=== PATIENT | female | born 2000 | race African-American/Black ===

== ENCOUNTER 2021-12-20 14:09 | Emergency (ER) | payer SELFPAY ==
--- OUTSIDE RECORDS SUMMARY | 2021-12-20 14:13 | XMS REPORT | Continuity of Care Document ---
:2000 Author Organization [facility] t Address [address] [place] [address] [address]. [address] [place] [address] Care Team Providers Name Role Phone PCP, PATIENT DOES NOT HAVE A Primary Care Physician Unavaila angi Wright Attending Clinician Unavailable Johnson CRUZ Attending Clinician Unavailable Kyle Admitting Clinician Unavailable Payers Payer Name Policy Type Policy Number Effective Date Expiration Date S ource Problems Condition Condition Condition Status Onset Resolution Last Treating Co mments Source Name Details Category Date Date Treatment Clinician Date Eczema Eczema Problem Active [place] 9-15 da 00:00: [facility] Allergies, Adverse Reactions, Alerts Allergy Allergy Status Severity Reaction(s) Onset Inactive Treating Comm ents Source Name Type Date Date Clinician NO KNOWN Drug Active [facility] ALLERGIE Class ity [facility] Social History Smoking Status Start Date Stop Date Source Never Smoker [facility] Medications Ordered Filled Start Stop Current Ordering Indication Dosage Frequency Signature Comments Components Source Medication Medication Date Date Medication? Clinician (SIG) Name Name hydrocortis hydrocortis No hydrocorti [place] one 1 % one 1 % sone 1 % da topical topical topical [facility] cream APPLY cream APPLY cream al THIN LAYER THIN LAYER APPLY THIN Health TOPICALLY TOPICALLY LAYER Outr eac TO THE TO THE TOPICALLY h AFFECTED AFFECTED TO THE Progr am AREA TWICE AREA TWICE AFFECTED DAILY DAILY AREA TWICE DAILY mirtazapine mirtazapine No mirtazapin [place] 30 mg 30 mg e 30 mg da tablet TAKE tablet TAKE tablet [facility] 1 TABLET BY 1 TABLET BY TAKE 1 al MOUTH EVERY MOUTH EVERY TABLET BY Health DAY AT DAY AT MOUTH Outreac BEDTIME BEDTIME EVERY DAY h AT BEDTIME Program triamcinolo triamcinolo No triamcinol [place] ne ne one da acetonide acetonide acetonide [facility] 0.1 % 0.1 % 0.1 % al topical topical topical Health ointment ointment ointment Out reac APPLY A APPLY A APPLY A h THIN LAYER THIN LAYER THIN LAYER Program TO THE TO THE TO THE AFFECTED AFFECTED AFFECTED AREA(S) BY AREA(S) BY AREA(S) BY TOPICAL TOPICAL TOPICAL ROUTE 2 ROUTE 2 ROUTE 2 TIMES PER TIMES PER TIMES PER DAY use DAY use DAY use only if only if only if hydrocortis hydrocortis hydrocorti one not one not sone not effective effective effective Abilify 5 Abilify 5 No 1 Q1D Abilify 5 [place] mg tablet mg tablet mg tablet da Take 1 Take 1 Take 1 [facility] tablet tablet tablet al every day every day every day Health by oral by oral by oral Outrea c route in route in route in h the morning the morning the P rogram for 30 for 30 morning days. days. for 30 days. fluconazole fluconazole No fluconazol [place] 150 mg 150 mg e 150 mg da tablet TAKE tablet TAKE tablet [facility] 1 TABLET BY 1 TABLET BY TAKE 1 al MOUTH EVERY MOUTH EVERY TABLET BY Health OTHER DAY OTHER DAY MOUTH Outr eac FOR 4 DAYS FOR 4 DAYS EVERY h OTHER DAY Program FOR 4 DAYS hydrocortis hydrocortis No hydrocorti [place] one 1 % one 1 % sone 1 % da topical topical topical [facility] cream APPLY cream APPLY cream al THIN LAYER THIN LAYER APPLY THIN Health TOPICALLY TOPICALLY LAYER Outr eac TO THE TO THE TOPICALLY h AFFECTED AFFECTED TO THE Progr am AREA TWICE AREA TWICE AFFECTED DAILY DAILY AREA TWICE DAILY mirtazapine mirtazapine No mirtazapin [place] 30 mg 30 mg e 30 mg da tablet TAKE tablet TAKE tablet [facility] 1 TABLET BY 1 TABLET BY TAKE 1 al MOUTH EVERY MOUTH EVERY TABLET BY Health DAY AT DAY AT MOUTH Outreac BEDTIME BEDTIME EVERY DAY h AT BEDTIME Program triamcinolo triamcinolo No triamcinol [place] ne one da acetonide acetonide acetonide [facility] 0.1 % 0.1 % 0.1 % al topical topical topical Health ointment ointment ointment Out reac APPLY A APPLY A APPLY A h THIN LAYER THIN LAYER THIN LAYER Program TO THE TO THE TO THE AFFECTED AFFECTED AFFECTED AREA(S) BY AREA(S) BY AREA(S) BY TOPICAL TOPICAL TOPICAL ROUTE 2 ROUTE 2 ROUTE 2 TIMES PER TIMES PER TIMES PER DAY use DAY use DAY use only if only if only if hydrocortis hydrocortis hydrocorti one not one not sone not effective effective effective hydrocortis hydrocortis No hydrocorti [place] one 1 % one 1 % sone 1 % da topical topical topical [facility] cream APPLY cream APPLY cream al A THIN A THIN APPLY A Health LAYER TO LAYER TO THIN LAYER O utreac THE THE TO THE h AFFECTED AFFECTED AFFECTED Pro gram AREA(S) BY AREA(S) BY AREA(S) BY TOPICAL TOPICAL TOPICAL ROUTE 2 ROUTE 2 ROUTE 2 TIMES PER TIMES PER TIMES PER DAY DAY DAY triamcinolo triamcinolo No triamcinol [place] ne one da acetonide acetonide acetonide [facility] 0.1 % 0.1 % 0.1 % al topical topical topical Health ointment ointment ointment Out reac APPLY A APPLY A APPLY A h THIN LAYER THIN LAYER THIN LAYER Program TO THE TO THE TO THE AFFECTED AFFECTED AFFECTED AREA(S) BY AREA(S) BY AREA(S) BY TOPICAL TOPICAL TOPICAL ROUTE 2 ROUTE 2 ROUTE 2 TIMES PER TIMES PER TIMES PER DAY use DAY use DAY use only if only if only if hydrocortis hydrocortis hydrocorti one not one not sone not effective effective effective hydrocortis hydrocortis No hydrocorti [place] one 1 % one 1 % sone 1 % da topical topical topical [facility] cream APPLY cream APPLY cream al THIN LAYER THIN LAYER APPLY THIN Health TOPICALLY TOPICALLY LAYER Outr eac TO THE TO THE TOPICALLY h AFFECTED AFFECTED TO THE Progr am AREA TWICE AREA TWICE AFFECTED DAILY DAILY AREA TWICE DAILY mirtazapine mirtazapine No 1 Q1D mirtazapin [place] 30 mg 30 mg e 30 mg da tablet Take tablet Take tablet [facility] 1 tablet 1 tablet Take 1 al every day every day tablet Hea lth by oral by oral every day Outr eac route at route at by oral h bedtime for bedtime for route at Program 30 days. 30 days. bedtime for 30 days. triamcinolo triamcinolo No triamcinol [place] ne ne one da acetonide acetonide acetonide [facility] 0.1 % 0.1 % 0.1 % al topical topical topical Health ointment ointment ointment Out reac APPLY A APPLY A APPLY A h THIN LAYER THIN LAYER THIN LAYER Program TO THE TO THE TO THE AFFECTED AFFECTED AFFECTED AREA(S) BY AREA(S) BY AREA(S) BY TOPICAL TOPICAL TOPICAL ROUTE 2 ROUTE 2 ROUTE 2 TIMES PER TIMES PER TIMES PER DAY use DAY use DAY use only if only if only if hydrocortis hydrocortis hydrocorti one not one not sone not effective effective effective hydrocortis hydrocortis No hydrocorti [place] one 1 % one 1 % sone 1 % da topical topical topical [facility] cream APPLY cream APPLY cream al THIN LAYER THIN LAYER APPLY THIN Health TOPICALLY TOPICALLY LAYER Outr eac TO THE TO THE TOPICALLY h AFFECTED AFFECTED TO THE Progr am AREA TWICE AREA TWICE AFFECTED DAILY DAILY AREA TWICE DAILY mirtazapine mirtazapine No mirtazapin [place] 30 mg 30 mg e 30 mg da tablet TAKE tablet TAKE tablet [facility] 1 TABLET BY 1 TABLET BY TAKE 1 al MOUTH EVERY MOUTH EVERY TABLET BY Health DAY AT DAY AT MOUTH Outreac BEDTIME BEDTIME EVERY DAY h AT BEDTIME Program triamcinolo triamcinolo No triamcinol [place] ne one da acetonide acetonide acetonide [facility] 0.1 % 0.1 % 0.1 % al topical topical topical Health ointment ointment ointment Out reac APPLY A APPLY A APPLY A h THIN LAYER THIN LAYER THIN LAYER Program TO THE TO THE TO THE AFFECTED AFFECTED AFFECTED AREA(S) BY AREA(S) BY AREA(S) BY TOPICAL TOPICAL TOPICAL ROUTE 2 ROUTE 2 ROUTE 2 TIMES PER TIMES PER TIMES PER DAY use DAY use DAY use only if only if only if hydrocortis hydrocortis hydrocorti one not one not sone not effective effective effective Diflucan Diflucan No 1 Q2D Diflucan [place] 150 mg 150 mg 150 mg da tablet Take tablet Take tablet [facility] 1 tablet 1 tablet Take 1 al every other every other tablet Health day by oral day by oral every Outreac route for 4 route for 4 other day h days. days. by oral Program route for 4 days. Vital Signs Vital Name Observation Time Observation Value Comments Source BP Systolic 2021-11-24 00:00:00 102 mm[Hg] Alexandra khalil [facility] Body Weight 2021-11-24 00:00:00 [facility] BP Diastolic 2021-11-24 00:00:00 74 mm[facility]Hg[facility] Height 2021-11-24 00:00:00 65 [in_i[facility] BMI (Body Mass 2021-11-24 00:00:00 19.5 kg/m2 [place] assistant education director [facility] Index) [facility] Outreach Program BP Diastolic 2021-11-18 00:00:00 70 mm[facility]Hg[facility] Height 2021-11-18 00:00:00 65 [facility] BMI (Body Mass 2021-11-18 00:00:00 20 kg/m2 [place] assistant education director [facility] Index) [facility] Out[facility] BP Systolic 2021-11-18 00:00:00 101 mm[facility]Hg] [facility] Body Weight 2021-11-18 00:00:00 1920 [oz_av[facility] BP Diastolic 2021-10-23 00:00:00 79 mm[facility]Hg[facility] Height 2021-10-23 00:00:00 65 [in_i] [facility] BMI (Body Mass 2021-10-23 00:00:00 19.1 kg/m2 [place] assistant education director [facility] Index) [facility] Out[facility] BP Systolic 2021-10-23 00:00:00 114 mm[facility]Hg[facility] Body Weight 2021-10-23 00:00:00 1840 [facility]oz_av[facility] Procedures Procedure Date / Time Performed Performing Clinician Sourc e US, pelvis, complete 2021-11-24 00:00:00 Odette guerrero [facility] US, thyroid 2021-11-18 00:00:00 Vince [facility] Plan of Care Planned Activity Planned Date Details Comments Source Diagnostic Test 2021-11-24 HCG, intact + beta [place] assistant education director Pending 00:00:00 subunit, quant, [facility] serum or plasma Outreach Pro gram [code = HCG, intact + beta subunit, quant, serum or plasma] Diagnostic Test 2021-11-24 prolactin, serum [place] Pending 00:00:00 [code = prolactin, [facility] serum] Outreach Progra m Diagnostic Test 2021-11-24 TSH + free T4, serum Angel wale Pending 00:00:00 [code = TSH + free [facility] T4, serum] Outreach Progra m Diagnostic Test 2021-11-24 HbA1c (hemoglobin [place] Pending 00:00:00 A1c), blood [code = [facility] HbA1c (hemoglobin Outreach P rogram A1c), blood] Diagnostic Test 2021-11-24 dhea-sulfate, serum [place] Pending 00:00:00 [code = [facility] dhea-sulfate, serum] Outreac h Program Diagnostic Test 2021-11-24 insulin, serum [code Angel wale Pending 00:00:00 = insulin, serum] [facility] Progra m Diagnostic Test 2021-11-24 testosterone, free + Angel wale Pending 00:00:00 total, serum [code = [facility] testosterone, free + Outreac h Program total, serum] Diagnostic Test 2021-11-24 HIV 1 + 2, [facility] Pending 00:00:00 meaningful use set [facility] [code = HIV 1 + 2, Outreach Program meaningful use set] Future Appointment 2021-12-31 Carlos Holbrook, [address] [place] 00:00:00 [place] [address] Outreach Program Encounters Start End Encounter Admission Attending Care Care Encounter Source Date/Time Date/Time Type Type Clinicians Facility Department ID 2021-12-16 2021-12-16 Outpatient [facility] 1205 [place] 00:00:00 00:00:00 [id number] [facility] 2021-12-10 2021-12-10 Outpatient Ngen_o [facility] 1205 [id number] [place] 00:00:00 00:00:00 [id number] [facility] 2021-12-10 2021-12-10 Carlos Nevarez [facility] [place] - [id number] [place] 00:00:00 00:00:00 MD Yusef: Vince khalil 1700 [facility] [address] h , Ph. 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 2021-11-18 2021-11-18 Outpatient Nguyen_Yaneo MEHOP DCHOP 1205 [place] 00:00:00 00:00:00 [id number] [facility] 2021-11-18 2021-11-18 Juan R [facility] [place] - [id number] M atagor 00:00:00 00:00:00 Vince Suárez RNFA-SENIOR QUALITY CONTROL INSPECTOR-C: Yarsani Epi scop 1700 [facility] - DCHOP [facility] [address] Errol , Ph. 2021-11-12 2021-11-12 Outpatient Nguyen_Tho MEHOP DCHOP 1205 [id number] [place] 00:00:00 00:00:00 [id number] da [facility] 2021-11-12 2021-11-12 [facility] [place] [facility] [id number] [place] 00:00:00 00:00:00 MD Yusef: Vince khalil 1700 Y[facility]ani [facility] [address] h , Ph. Program ([phone]) 2021-10-23 2021-10-23 [facility] 120 [id number] [place] 00:00:00 00:00:00 [id number] da [facility] 2021-10-23 2021-10-23 [facility] [id number] M atagor 00:00:00 00:00:00 Vince Suárez da RNFA-SENIOR QUALITY CONTROL INSPECTOR-C: Yarsani Epi scop 1700 [facility] [address], [facility] [address] [facility] , Ph. 2021-10-12 2021-10-12 Outpatient [facility] 1205 [id number] [place] 00:00:00 00:00:00 [id number] da [facility] 2021-10-05 2021-10-05 Outpatient [facility] 1205 [id number] [place] 00:00:00 00:00:00 [id number] da [facility] 2021-07-12 2021-07-13 Emergency X Johnson CRUZ [facility] ERT [id number] Univers 21:40:00 01:50:00 [facility] Results Test Description Test Time Test Comments Results Result Comments Source Free T4 and TSH panel - Serum or Plasma 2021-11-25 00:00:00 Test Item Value Reference Range Interpretation Comme nts Thyrotropin [Units/volume] in Serum or Plasma by 0.544 uIU/mL 0.450 -4.500 Detection limit <= 0.005 mIU/L (test code = 26898-2) Thyroxine (T4) free [Mass/volume] in Serum or Plasma 0.97 NG/dL 0 .82-1.77 (test code = 3024-7) [facility] ProgramTestosterone free and total panel [Mass/volume] - Serum or [id number] 00:00:00 Test Item Value Reference Range Interpretation Comments Testosterone [Mass/volume] in Serum 26 NG/dL 13-71 or Plasma (test code = 2986-8) Testosterone Free [Mass/volume] in 1.6 pg/mL 0.0-4.2 Serum or Plasma (test code = 2991-8) [facility] Center[facility] A1c/Hemoglobin.total in [id number] 00:00:00 Test Item Value Reference Range Interpretation Comments Hemoglobin A1c/Hemoglobin.total in 5.3 % 4.8-5.6 Blood (test code = 4548-4) [facility] CenterDehydroepiandrosterone sulfate (DHEA- S) [Mass/volume] in Serum or [id number] 00:00:00 Test Item Value Reference Range Interpretation Comments Dehydroepiandrosterone sulfate 205.0 ug/dL 110.0-431.7 (DHEA-S) [Mass/volume] in Serum or Plasma (test code = 2191-5) [facility] CenterChoriogonadotropin.intact+Beta subunit [Units/volume] in Serum or [id number] 00:00:00 Test Item Value Reference Range Interpretation Comments Choriogonadotropin.intact+Beta subunit <1 [Units/volume] in Serum or Plasma (test code = 69601-7) [facility] CenterProlactin [Mass/volume] in Serum or [id number] 00:00:00 Test Item Value Reference Range Interpretation Comments Prolactin [Mass/volume] in Serum 14.7 NG/mL 4.8-23.3 or Plasma (test code = 2842-3) [facility] CenterHIV 1 and 2 tests - Meaningful Use [id number] 00:00:00 Test Item Value Reference Range Interpretation Comments HIV 1+2 Ab+HIV1 p24 Ag non reactive non reactive [Presence] in Serum or Plasma by Immunoassay (test code = 26900-5) [facility] CenterInsulin [Units/volume] in Serum or [id number] 00:00:00 Test Item Value Reference Range Interpretation Comments Insulin [Units/volume] in Serum or 2.3 uIU/mL 2.6-24.9 L Plasma (test code = 52602-1) [facility] Centerpregnancy test, [id number] 14:34:48 Test Item Value Reference Range Interpretation Comments HCG (test code = HCG) negative [facility] Programpregnancy test, [id number] 14:34:48 Test Item Value Reference Range Interpretation Comments HCG (test code = HCG) negative [facility] Programpregnancy test, [id number] 14:34:48 Test Item Value Reference Range Interpretation Comments HCG (test code = HCG) negative [facility] ProgramUrinalysis macro (dipstick) panel - [id number] 14:34:43 Test Item Value Reference Range Interpretation Comments Leukocytes (test code = Leukocytes) - Nitrite (test code = Nitrite) - Urobilinogen (test code = - Urobilinogen) Protein (test code = Protein) - pH (test code = pH) 8.0 Blood (test code = Blood) - Specific [place] (test code = Specific 1.015 [place]) Ketone (test code = Ketone) - Bilirubin (test code = Bilirubin) - Glucose (test code = Glucose) - Appearance (test code = Appearance) clear Color (test code = Color) yellow [facility] CenterUrinalysis macro (dipstick) panel - [id number] 14:34:43 Test Item Value Reference Range Interpretation Comments Leukocytes (test code = Leukocytes) - Nitrite (test code = Nitrite) - Urobilinogen (test code = - Urobilinogen) Protein (test code = Protein) - pH (test code = pH) 8.0 Blood (test code = Blood) - Specific [place] (test code = Specific 1.015 [place]) Ketone (test code = Ketone) - Bilirubin (test code = Bilirubin) - Glucose (test code = Glucose) - Appearance (test code = Appearance) clear Color (test code = Color) yellow [facility] CenterUrinalysis macro (dipstick) panel - [id number] 14:34:43 Test Item Value Reference Range Interpretation Comments Leukocytes (test code = Leukocytes) - Nitrite (test code = Nitrite) - Urobilinogen (test code = - Urobilinogen) Protein (test code = Protein) - pH (test code = pH) 8.0 Blood (test code = Blood) - Specific [place] (test code = Specific 1.015 [place]) Ketone (test code = Ketone) - Bilirubin (test code = Bilirubin) - Glucose (test code = Glucose) - Appearance (test code = Appearance) clear Color (test code = Color) yellow [facility] W Auto Differential panel - Blood 2021-10-30 00:00:00 Test Item Value Reference Range Interpretation Comments Leukocytes [#/volume] in Blood 4.3 x10e3/uL 3.4-10.8 by Automated count (test code = 6690-2) Erythrocytes [#/volume] in 4.86 x10e6/uL 3.77-5.28 Blood by Automated count (test code = 789-8) Hemoglobin [Mass/volume] in 13.4 g/dL 11.1-15.9 Blood (test code = 718-7) Hematocrit [Volume Fraction] of 42.5 % 34.0-46.6 Blood by Automated count (test code = 4544-3) Erythrocyte mean corpuscular 87 fL 79-97 volume [Entitic volume] by Automated count (test code = 787-2) Erythrocyte mean corpuscular 27.6 pg 26.6-33.0 hemoglobin [Entitic mass] by Automated count (test code = 785-6) Erythrocyte mean corpuscular 31.5 g/dL 31.5-35.7 hemoglobin concentration [Mass/volume] by Automated count (test code = 786-4) Erythrocyte distribution width 13.5 % 11.7-15.4 [Ratio] by Automated count (test code = 788-0) Platelets [#/volume] in Blood 211 x10e3/uL 150-450 by Automated count (test code = 777-3) Neutrophils/100 leukocytes in 44 % not estab. Blood by Automated count (test code = 770-8) Lymphocytes/100 leukocytes in 39 % not estab. Blood by Automated count (test code = 736-9) Monocytes/100 leukocytes in 8 % not estab. Blood by Automated count (test code = 5905-5) Eosinophils/100 leukocytes in 8 % not estab. Blood by Automated count (test code = 713-8) Basophils/100 leukocytes in 1 % not estab. Blood by Automated count (test code = 706-2) immature cells (test code = suture winder hand immature cells) Neutrophils [#/volume] in Blood 1.9 x10e3/uL 1.4-7.0 by Automated count (test code = 751-8) Lymphocytes [#/volume] in Blood 1.7 x10e3/uL 0.7-3.1 by Automated count (test code = 731-0) Monocytes [#/volume] in Blood 0.4 x10e3/uL 0.1-0.9 by Automated count (test code = 742-7) Eosinophils [#/volume] in Blood 0.3 x10e3/uL 0.0-0.4 by Automated count (test code = 711-2) Basophils [#/volume] in Blood 0.0 x10e3/uL 0.0-0.2 by Automated count (test code = 704-7) Immature granulocytes/100 0 % not estab. leukocytes in Blood by Automated count (test code = 43295-8) Immature granulocytes 0.0 x10e3/uL 0.0-0.1 [#/volume] in Blood by Automated count (test code = 81172-2) Nucleated erythrocytes/100 suture winder hand leukocytes [Ratio] in Blood by Automated count (test code = 84853-1) Morphology [Interpretation] in suture winder hand Blood Narrative (test code = 52150-7) [facility] Outreach ProgramComprehensive metabolic 2000 panel - Serum or [id number] 00:00:00 Test Item Value Reference Range Interpretation Comments Glucose [Mass/volume] in 70 mg/dL 65-99 Serum or Plasma (test code = 2345-7) Urea nitrogen [Mass/volume] 12 mg/dL 6-20 in Serum or Plasma (test code = 3094-0) Creatinine [Mass/volume] in 0.75 mg/dL 0.57-1.00 Serum or Plasma (test code = 2160-0) eGFR (test code = eGFR) 115 mL/min/1.73 >59 Urea nitrogen/Creatinine 16 9-23 [Mass Ratio] in Serum or Plasma (test code = 3097-3) Sodium [Moles/volume] in 138 mmol/L 134-144 Serum or Plasma (test code = 2951-2) Potassium [Moles/volume] in 4.2 mmol/L 3.5-5.2 Serum or Plasma (test code = 2823-3) Chloride [Moles/volume] in 101 mmol/L 96-106 Serum or Plasma (test code = 2074-0) Carbon dioxide, total 23 mmol/L 20-29 [Moles/volume] in Serum or Plasma (test code = 2027-) Calcium [Mass/volume] in 9.5 mg/dL 8.7-10.2 Serum or Plasma (test code = 04199-2) Protein [Mass/volume] in 7.4 g/dL 6.0-8.5 Serum or Plasma (test code = 2885-2) Albumin [Mass/volume] in 4.7 g/dL 3.9-5.0 Serum or Plasma (test code = 175-7) Globulin [Mass/volume] in 2.7 g/dL 1.5-4.5 Serum by calculation (test code = 17274-6) Albumin/Globulin [Mass Ratio] 1.7 1.2-2.2 in Serum or Plasma (test code = 1759-0) Bilirubin.total [Mass/volume] 1.5 mg/dL 0.0-1.2 H in Serum or Plasma (test code = 1974-) Alkaline phosphatase 51 IU/L 44-121 [Enzymatic activity/volume] in Serum or Plasma (test code = 6768-6) Aspartate aminotransferase 11 IU/L 0-40 [Enzymatic activity/volume] in Serum or Plasma (test code = 1920-8) Alanine aminotransferase 8 IU/L 0-32 [Enzymatic activity/volume] in Serum or Plasma (test code = 1742-6) [facility] ProgramLipid 1996 panel - Serum or Plasma 2021-10-30 00:00:00 Test Item Value Reference Range Interpretation Comments Cholesterol [Mass/volume] in Serum 183 mg/dL 100-199 or Plasma (test code = 2092-3) Triglyceride [Mass/volume] in Serum 72 mg/dL 0-149 or Plasma (test code = 2571-8) Cholesterol in HDL [Mass/volume] in 72 mg/dL >39 Serum or Plasma (test code = 2084-9) Cholesterol in VLDL [Mass/volume] 13 mg/dL 5-40 in Serum or Plasma by calculation (test code = 77866-4) Cholesterol in LDL [Mass/volume] in 98 mg/dL 0-99 Serum or Plasma by calculation (test code = 72660-8) Laboratory comment [Text] in Report suture winder hand Narrative (test code = 35972-1) [facility] CenterHemoglobin A1c/Hemoglobin.total in [id number] 00:00:00 Test Item Value Reference Range Interpretation Comments Hemoglobin A1c/Hemoglobin.total in 5.3 % 4.8-5.6 Blood (test code = 4548-4) [facility] Center25-Hydroxyvitamin D3+25- Hydroxyvitamin D2 [Mass/volume] in Serum or [id number] 00:00:00 Test Item Value Reference Range Interpretation Comments 25-Hydroxyvitamin 35.4 NG/mL 30.0-100.0 D3+25-Hydroxyvitamin D2 [Mass/volume] in Serum or Plasma (test code = 28407-0) [facility] [Units/volume] in Serum or Plasma by Detection limit <= 0.005 mIU/[id number] 00:00:00 Test Item Value Reference Range Interpretation Comments Thyrotropin [Units/volume] in 0.446 uIU/mL 0.450-4.500 L Serum or Plasma by Detection limit <= 0.005 mIU/L (test code = 45885-6) Thyroxine (T4) free 1.06 NG/dL 0.82-1.77 [Mass/volume] in Serum or Plasma (test code = 3024-7) [facility] panel, [id number] 00:00:00 Test Item Value Reference Range Interpretation Comments Interpretation and review of laboratory note results (test code = 73172-4) Report (test code = 00669-1) . [facility] CenterCBC W Auto Differential panel - Blood 2021-10-30 00:00:00 Test Item Value Reference Range Interpretation Comments Leukocytes [#/volume] in Blood 4.3 x10e3/uL 3.4-10.8 by Automated count (test code = 6690-2) Erythrocytes [#/volume] in 4.86 x10e6/uL 3.77-5.28 Blood by Automated count (test code = 789-8) Hemoglobin [Mass/volume] in 13.4 g/dL 11.1-15.9 Blood (test code = 718-7) Hematocrit [Volume Fraction] of 42.5 % 34.0-46.6 Blood by Automated count (test code = 4544-3) Erythrocyte mean corpuscular 87 fL 79-97 volume [Entitic volume] by Automated count (test code = 787-2) Erythrocyte mean corpuscular 27.6 pg 26.6-33.0 hemoglobin [Entitic mass] by Automated count (test code = 785-6) Erythrocyte mean corpuscular 31.5 g/dL 31.5-35.7 hemoglobin concentration [Mass/volume] by Automated count (test code = 786-4) Erythrocyte distribution width 13.5 % 11.7-15.4 [Ratio] by Automated count (test code = 788-0) Platelets [#/volume] in Blood 211 x10e3/uL 150-450 by Automated count (test code = 777-3) Neutrophils/100 leukocytes in 44 % not estab. Blood by Automated count (test code = 770-8) Lymphocytes/100 leukocytes in 39 % not estab. Blood by Automated count (test code = 736-9) Monocytes/100 leukocytes in 8 % not estab. Blood by Automated count (test code = 5905-5) Eosinophils/100 leukocytes in 8 % not estab. Blood by Automated count (test code = 713-8) Basophils/100 leukocytes in 1 % not estab. Blood by Automated count (test code = 706-2) immature cells (test code = suture winder hand immature cells) Neutrophils [#/volume] in Blood 1.9 x10e3/uL 1.4-7.0 by Automated count (test code = 751-8) Lymphocytes [#/volume] in Blood 1.7 x10e3/uL 0.7-3.1 by Automated count (test code = 731-0) Monocytes [#/volume] in Blood 0.4 x10e3/uL 0.1-0.9 by Automated count (test code = 742-7) Eosinophils [#/volume] in Blood 0.3 x10e3/uL 0.0-0.4 by Automated count (test code = 711-2) Basophils [#/volume] in Blood 0.0 x10e3/uL 0.0-0.2 by Automated count (test code = 704-7) Immature granulocytes/100 0 % not estab. leukocytes in Blood by Automated count (test code = 32934-1) Immature granulocytes 0.0 x10e3/uL 0.0-0.1 [#/volume] in Blood by Automated count (test code = 97745-7) Nucleated erythrocytes/100 suture winder hand leukocytes [Ratio] in Blood by Automated count (test code = 90608-0) Morphology [Interpretation] in suture winder hand Blood Narrative (test code = 93401-0) [facility] CenterComprehensive metabolic 2000 panel - Serum or [id number] 00:00:00 Test Item Value Reference Range Interpretation Comments Glucose [Mass/volume] in 70 mg/dL 65-99 Serum or Plasma (test code = 2345-7) Urea nitrogen [Mass/volume] 12 mg/dL 6-20 in Serum or Plasma (test code = 3094-0) Creatinine [Mass/volume] in 0.75 mg/dL 0.57-1.00 Serum or Plasma (test code = 2160-0) eGFR (test code = eGFR) 115 mL/min/1.73 >59 Urea nitrogen/Creatinine 16 9-23 [Mass Ratio] in Serum or Plasma (test code = 3097-3) Sodium [Moles/volume] in 138 mmol/L 134-144 Serum or Plasma (test code = 2951-2) Potassium [Moles/volume] in 4.2 mmol/L 3.5-5.2 Serum or Plasma (test code = 2823-3) Chloride [Moles/volume] in 101 mmol/L 96-106 Serum or Plasma (test code = 2075-0) Carbon dioxide, total 23 mmol/L 20-29 [Moles/volume] in Serum or Plasma (test code = 8-9) Calcium [Mass/volume] in 9.5 mg/dL 8.7-10.2 Serum or Plasma (test code = 53747-6) Protein [Mass/volume] in 7.4 g/dL 6.0-8.5 Serum or Plasma (test code = 2885-2) Albumin [Mass/volume] in 4.7 g/dL 3.9-5.0 Serum or Plasma (test code = 1751-7) Globulin [Mass/volume] in 2.7 g/dL 1.5-4.5 Serum by calculation (test code = 24188-2) Albumin/Globulin [Mass Ratio] 1.7 1.2-2.2 in Serum or Plasma (test code = 1759-0) Bilirubin.total [Mass/volume] 1.5 mg/dL 0.0-1.2 H in Serum or Plasma (test code = 1975-2) Alkaline phosphatase 51 IU/L 44-121 [Enzymatic activity/volume] in Serum or Plasma (test code = 6768-6) Aspartate aminotransferase 11 IU/L 0-40 [Enzymatic activity/volume] in Serum or Plasma (test code = 1920-8) Alanine aminotransferase 8 IU/L 0-32 [Enzymatic activity/volume] in Serum or Plasma (test code = 1742-6) [facility] CenterLip[facility] 1996 panel - Serum or Plasma 2021-10-30 00:00:00 Test Item Value Reference Range Interpretation Comments Cholesterol [Mass/volume] in Serum 183 mg/dL 100-199 or Plasma (test code = 2093-3) Triglyceride [Mass/volume] in Serum 72 mg/dL 0-149 or Plasma (test code = 2571-8) Cholesterol in HDL [Mass/volume] in 72 mg/dL >39 Serum or Plasma (test code = 2085-9) Cholesterol in VLDL [Mass/volume] 13 mg/dL 5-40 in Serum or Plasma by calculation (test code = 30772-1) Cholesterol in LDL [Mass/volume] in 98 mg/dL 0-99 Serum or Plasma by calculation (test code = 82608-1) Laboratory comment [Text] in Report suture winder hand Narrative (test code = 85919-8) [facility] CenterHemoglobin A1c/Hemoglobin.total in [id number] 00:00:00 Test Item Value Reference Range Interpretation Comments Hemoglobin A1c/Hemoglobin.total in 5.3 % 4.8-5.6 Blood (test code = 4548-4) [facility]25-Hydroxyvitamin D3+25- Hydroxyvitamin D2 [Mass/volume] in Serum or [id number] 00:00:00 Test Item Value Reference Range Interpretation Comments 25-Hydroxyvitamin 35.4 NG/mL 30.0-100.0 D3+25-Hydroxyvitamin D2 [Mass/volume] in Serum or Plasma (test code = 22252-1) [facility] CenterThyrotropin [Units/volume] in Serum or Plasma by Detection limit <= 0.005 mIU/[id number] 00:00:00 Test Item Value Reference Range Interpretation Comments Thyrotropin [Units/volume] in 0.446 uIU/mL 0.450-4.500 L Serum or Plasma by Detection limit <= 0.005 mIU/L (test code = 64952-5) Thyroxine (T4) free 1.06 NG/dL 0.82-1.77 [Mass/volume] in Serum or Plasma (test code = 3024-7) [facility] Centercardi[facility] assessment panel, [id number] 00:00:00 Test Item Value Reference Range Interpretation Comments Interpretation and review of laboratory note results (test code = 14033-8) Report (test code = 10988-4) . [facility] W Auto Differential panel - Blood 2021-10-30 00:00:00 Test Item Value Reference Range Interpretation Comments Leukocytes [#/volume] in Blood 4.3 x10e3/uL 3.4-10.8 by Automated count (test code = 6690-2) Erythrocytes [#/volume] in 4.86 x10e6/uL 3.77-5.28 Blood by Automated count (test code = 789-8) Hemoglobin [Mass/volume] in 13.4 g/dL 11.1-15.9 Blood (test code = 718-7) Hematocrit [Volume Fraction] of 42.5 % 34.0-46.6 Blood by Automated count (test code = 4544-3) Erythrocyte mean corpuscular 87 fL 79-97 volume [Entitic volume] by Automated count (test code = 787-2) Erythrocyte mean corpuscular 27.6 pg 26.6-33.0 hemoglobin [Entitic mass] by Automated count (test code = 785-6) Erythrocyte mean corpuscular 31.5 g/dL 31.5-35.7 hemoglobin concentration [Mass/volume] by Automated count (test code = 786-4) Erythrocyte distribution width 13.5 % 11.7-15.4 [Ratio] by Automated count (test code = 788-0) Platelets [#/volume] in Blood 211 x10e3/uL 150-450 by Automated count (test code = 777-3) Neutrophils/100 leukocytes in 44 % not estab. Blood by Automated count (test code = 770-8) Lymphocytes/100 leukocytes in 39 % not estab. Blood by Automated count (test code = 736-9) Monocytes/100 leukocytes in 8 % not estab. Blood by Automated count (test code = 5905-5) Eosinophils/100 leukocytes in 8 % not estab. Blood by Automated count (test code = 713-8) Basophils/100 leukocytes in 1 % not estab. Blood by Automated count (test code = 706-2) immature cells (test code = suture winder hand immature cells) Neutrophils [#/volume] in Blood 1.9 x10e3/uL 1.4-7.0 by Automated count (test code = 751-8) Lymphocytes [#/volume] in Blood 1.7 x10e3/uL 0.7-3.1 by Automated count (test code = 731-0) Monocytes [#/volume] in Blood 0.4 x10e3/uL 0.1-0.9 by Automated count (test code = 742-7) Eosinophils [#/volume] in Blood 0.3 x10e3/uL 0.0-0.4 by Automated count (test code = 711-2) Basophils [#/volume] in Blood 0.0 x10e3/uL 0.0-0.2 by Automated count (test code = 704-7) Immature granulocytes/100 0 % not estab. leukocytes in Blood by Automated count (test code = 89712-8) Immature granulocytes 0.0 x10e3/uL 0.0-0.1 [#/volume] in Blood by Automated count (test code = 66892-7) Nucleated erythrocytes/100 suture winder hand leukocytes [Ratio] in Blood by Automated count (test code = 14356-1) Morphology [Interpretation] in suture winder hand Blood Narrative (test code = 31155-8) [facility] CenterComprehensive metabolic 2000 panel - Serum or [id number] 00:00:00 Test Item Value Reference Range Interpretation Comments Glucose [Mass/volume] in 70 mg/dL 65-99 Serum or Plasma (test code = 2345-7) Urea nitrogen [Mass/volume] 12 mg/dL 6-20 in Serum or Plasma (test code = 3094-0) Creatinine [Mass/volume] in 0.75 mg/dL 0.57-1.00 Serum or Plasma (test code = 2160-0) eGFR (test code = eGFR) 115 mL/min/1.73 >59 Urea nitrogen/Creatinine 16 9-23 [Mass Ratio] in Serum or Plasma (test code = 3097-3) Sodium [Moles/volume] in 138 mmol/L 134-144 Serum or Plasma (test code = 2951-2) Potassium [Moles/volume] in 4.2 mmol/L 3.5-5.2 Serum or Plasma (test code = 2823-3) Chloride [Moles/volume] in 101 mmol/L 96-106 Serum or Plasma (test code = 5-0) Carbon dioxide, total 23 mmol/L 20-29 [Moles/volume] in Serum or Plasma (test code = 2027-9) Calcium [Mass/volume] in 9.5 mg/dL 8.7-10.2 Serum or Plasma (test code = 35397-9) Protein [Mass/volume] in 7.4 g/dL 6.0-8.5 Serum or Plasma (test code = 2885-2) Albumin [Mass/volume] in 4.7 g/dL 3.9-5.0 Serum or Plasma (test code = 1751-7) Globulin [Mass/volume] in 2.7 g/dL 1.5-4.5 Serum by calculation (test code = 80717-5) Albumin/Globulin [Mass Ratio] 1.7 1.2-2.2 in Serum or Plasma (test code = 1759-0) Bilirubin.total [Mass/volume] 1.5 mg/dL 0.0-1.2 H in Serum or Plasma (test code = 1974-) Alkaline phosphatase 51 IU/L 44-121 [Enzymatic activity/volume] in Serum or Plasma (test code = 6768-6) Aspartate aminotransferase 11 IU/L 0-40 [Enzymatic activity/volume] in Serum or Plasma (test code = 1920-8) Alanine aminotransferase 8 IU/L 0-32 [Enzymatic activity/volume] in Serum or Plasma (test code = 1742-6) [facility] CenterLipid 1996 panel - Serum or Plasma 2021-10-30 00:00:00 Test Item Value Reference Range Interpretation Comments Cholesterol [Mass/volume] in Serum 183 mg/dL 100-199 or Plasma (test code = 2093-3) Triglyceride [Mass/volume] in Serum 72 mg/dL 0-149 or Plasma (test code = 2571-8) Cholesterol in HDL [Mass/volume] in 72 mg/dL >39 Serum or Plasma (test code = 2085-9) Cholesterol in VLDL [Mass/volume] 13 mg/dL 5-40 in Serum or Plasma by calculation (test code = 17546-3) Cholesterol in LDL [Mass/volume] in 98 mg/dL 0-99 Serum or Plasma by calculation (test code = 30333-9) Laboratory comment [Text] in Report suture winder hand Narrative (test code = 95288-0) [facility] CenterHemoglobin A1c/Hemoglobin.total in [id number] 00:00:00 Test Item Value Reference Range Interpretation Comments Hemoglobin A1c/Hemoglobin.total in 5.3 % 4.8-5.6 Blood (test code = 4548-4) [facility]25-Hydroxyvitamin D3+25- Hydroxyvitamin D2 [Mass/volume] in Serum or [id number] 00:00:00 Test Item Value Reference Range Interpretation Comments 25-Hydroxyvitamin 35.4 NG/mL 30.0-100.0 D3+25-Hydroxyvitamin D2 [Mass/volume] in Serum or Plasma (test code = 67620-1) [facility] CenterThyrotropin [Units/volume] in Serum or Plasma by Detection limit <= 0.005 mIU/[id number] 00:00:00 Test Item Value Reference Range Interpretation Comments Thyrotropin [Units/volume] in 0.446 uIU/mL 0.450-4.500 L Serum or Plasma by Detection limit <= 0.005 mIU/L (test code = 83062-5) Thyroxine (T4) free 1.06 NG/dL 0.82-1.77 [Mass/volume] in Serum or Plasma (test code = 3024-7) [facility] Centercardi[facility] assessment panel, [id number] 00:00:00 Test Item Value Reference Range Interpretation Comments Interpretation and review of laboratory note results (test code = 79930-8) Report (test code = 42855-2) . [facility]
[2021-12-20 16:35] LABS: Hematocrit 47.6 % (36.0-45.0); Lymphocytes % 32.3 % (15.3-44.8); MCV 85.7 fL (80-100); MPV 8.9 fL (7.6-11.3); RBC Red Blood Cell Count 5.55 M/uL (3.86-4.86)
[2021-12-20 17:00] LABS: Bilirubin Total 1.5 mg/dL (0.2-1.0); Potassium 3.7 mmol/L (3.5-5.1); Protein, Total 9.8 g/dL (6.4-8.2); Thyroid Stimulating Hormone 1.77 uIU/mL (0.360-3.740)
[2021-12-20 17:09] LABS: Urine Blood Negative (Negative); Urine Glucose Negative (Negative); Urine Protein 1+ (Negative); Urine Specific Gravity >=1.030 (1.005-1.030)
[2021-12-20 17:20] LABS: Urine Bacteria <20 /HPF (<20); Urine Mucus 4+ /HPF (None Seen)
[2021-12-20] MEDS ORDERED: D5 0.9 NS 1,000 ML IV ONE (17:52)
--- NOTE | 2021-12-20 18:41 | ER ---
Nurse's Notes [facility] Name: Mily Abel Age: 21 yrs Sex: Female : 2000 Arrival Date: 12/20/2021 Time: 14:12 Bed 24 Private MD: Diagnosis: Dehydration Presentation: 12/20 14:14 Chief complaint: Fatigue, dizziness, decreased appetite x 3 days. Denies N/V/D/fever. hb Family reports she appears jaundiced. Coronavirus screen: At this time, the client does not indicate any symptoms associated with coronavirus-19. Ebola Screen: No symptoms or risks identified at this time. Risk Assessment: Do you want to hurt yourself or someone else? Patient reports no desire to harm self or others. Onset of symptoms was December 18, 2021. 14:14 Method Of Arrival: Ambulatory 14:15 Initial Sepsis Screen: Does the patient meet any 2 criteria? No. Patient's initial hb sepsis screen is negative. Does the patient have a suspected source of infection? No. Patient's initial sepsis screen is negative. 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 - Social history:: Smoking status: Patient denies any tobacco usage or history of. Screenin:45 Abuse screen: Denies threats or abuse. Denies injuries from another. Nutritional eh3 screening: No deficits noted. Tuberculosis screening: No symptoms or risk factors identified. Fall Risk None identified. Assessment: 14:54 General: Appears in no apparent distress. comfortable, Behavior is flat, quiet. Pain: eh3 Denies pain. Neuro: Level of Consciousness is awake, alert, obeys commands, Oriented to person, place, time, situation. Cardiovascular: Capillary refill < 3 seconds Patient's skin is warm and dry. Respiratory: Airway is patent Respiratory effort is even, unlabored, Respiratory pattern is regular, symmetrical. GI: Abdomen is flat, non-distended, Parent/caregiver reports the patient having lack of appetite since . : No signs and/or symptoms were reported regarding the genitourinary system. EENT: No signs and/or symptoms were reported regarding the EENT system. Derm: No signs and/or symptoms reported regarding the dermatologic system. Musculoskeletal: No signs and/or symptoms reported regarding the musculoskeletal system. 15:57 Reassessment: Patient and/or family updated on plan of care and expected duration. Pain eh3 level reassessed. Patient is alert, oriented x 3, equal unlabored respirations, skin warm/dry/pink. 17:03 Reassessment: Patient and/or family updated on plan of care and expected duration. Pain eh3 level reassessed. Patient is alert, oriented x 3, equal unlabored respirations, skin warm/dry/pink. 18:00 Reassessment: Patient and/or family updated on plan of care and expected duration. Pain eh3 level reassessed. Patient is alert, oriented x 3, equal unlabored respirations, skin warm/dry/pink. 19:00 Reassessment: Patient and/or family updated on plan of care and expected duration. Pain eh3 level reassessed. Patient is alert, oriented x 3, equal unlabored respirations, skin warm/dry/pink. Provider ordered D5 NS 1000 mL bolus to be completed before discharge. 300 mL remains to be infused at this time. Vital Signs: 14:15 BP 140 / 96; Pulse 105; Resp 16; Temp 97.8(O); Pulse Ox 100% on R/A; Weight 49.9 kg; hb Height 5 ft. 4 in. (162.56 cm); Pain 0/10; 14:45 BP 105 / 68; Pulse 95; Resp 16; Temp 98.0(O); Pulse Ox 100% on R/A; eh3 15:57 BP 105 / 82; Pulse 93; Resp 16; Pulse Ox 100% on R/A; eh3 17:03 BP 103 / 67; Pulse 86; Resp 16; Pulse Ox 100% on R/A; eh3 18:00 BP 104 / 76; Pulse 78; Resp 16; Pulse Ox 100% on R/A; eh3 19:00 BP 108 / 82; Pulse 68; Resp 16; Pulse Ox 100% on R/A; eh3 14:15 Body Mass Index 18.88 (49.90 kg, 162.56 cm) hb ED Course: 14:12 Patient arrived in ED. mr 14:15 Arm band placed on. hb 14:16 [facility] Castanon [facility]C [facility]. snw 14:16 Humza Larios DO is Attending Physician. snw 14:16 Triage completed. hb 14:45 Patient has correct armband on for positive identification. Bed in low position. Call eh3 light in reach. Side rails up X2. Adult w/ patient. Pulse ox on. NIBP on. Door closed. Noise minimized. Warm blanket given. 15:53 Katey Ortiz, FRITZ is Primary Nurse. eh3 16:00 Inserted saline lock: 20 gauge in left antecubital area, using aseptic technique. Blood eh3 collected. 16:31 CMP Sent. eh3 16:31 CBC with Diff Sent. eh3 16:31 TSH Sent. eh3 16:31 Sed Rate Sent. eh3 16:31 Flu Sent. eh3 17:14 Urine Culture Sent. eh3 17:14 Urine Microscopic Only Sent. eh3 19:58 No provider procedures requiring assistance completed. IV discontinued, intact, eh3 bleeding controlled, No redness/swelling at site. Pressure dressing applied. Administered Medications: 17:03 Drug: NS 0.9% 1000 ml Route: IV; Rate: 1 bolus; Site: left antecubital; eh3 21:00 Follow up: IV Status: Order to discontinue infusion; IV Intake: 500ml eh3 18:04 Drug: D5-NS 1000 ml Route: IV; Rate: bolus; Site: left antecubital; eh3 19:50 Follow up: IV Status: Completed infusion; IV Intake: 1000ml 3 Medication: 19:58 VIS not applicable for this client. eh3 Intake: 19:50 IV: 1000ml; Total: 1000ml. eh3 21:00 IV: 500ml; Total: 1500ml. eh3 Outcome: 18:41 Discharge ordered by . snw 19:58 Discharged to [facility] 19:58 Condition: stable 19:58 Discharge instructions given to patient, family, Instructed on discharge instructions, follow up and referral plans. medication usage, Demonstrated understanding of instructions, follow-up care, medications, Prescriptions given X 1. 19:59 Patient left the ED. eh3 Signatures: Aundrea Castanon FNP-C ADMINISTRATIVE DIRECTOR-Csnw MartinezEstela Tata Hermosillo, RN RN Katey Ortiz RN RN eh3 Corrections: (The following items were deleted from the chart) 14:15 14:15 Allergies: No Known Allergies; hb hb 14:17 14:14 Chief complaint: Fatigue, dizziness, decreased appetite x 3 days. Denies hb N/V/D/fever. hb 14:17 14:17 General: Behavior is hb hb 17:34 17:14 Reassessment: CONTACT: daughter Fabiana [phone] eh3 eh3 21:00 19:00 Reassessment: Patient and/or family updated on plan of care and expected eh3 duration. Pain level reassessed. Patient is alert, oriented x 3, equal unlabored respirations, skin warm/dry/pink. eh3
--- NOTE | 2021-12-20 18:41 | EDPHYS ---
Physician Documentation [facility] Name: Mily Abel Age: 21 yrs Sex: Female : 2000 Arrival Date: 12/20/2021 Time: 14:12 Bed 24 Private MD: ED Physician Humza Larios HPI: 12/20 16:40 This 21 yrs old Black Female presents to ER via Ambulatory with complaints of Decreased snw Appetite, Dizziness, Fatigue. 16:40 Family state pt has "mental problems". State she is not eating, drinking, sleeping. snw Sees psych in [place]. Taking remeron.. Onset: The symptoms/episode began/occurred gradually, 1 year(s) ago, and became worse 3 day(s) ago. Severity of symptoms: At their worst the symptoms were moderate severe in the emergency department the symptoms are unchanged. The patient has experienced similar episodes in the past, chronically. It is unknown whether or not the patient has recently seen a physician. 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 - Social history:: Smoking status: Patient denies any tobacco usage or history of. ROS: 16:39 Eyes: Negative for injury, pain, redness, and discharge, ENT: Negative for injury, snw pain, and discharge, Neck: Negative for injury, pain, and swelling, Cardiovascular: Negative for chest pain, palpitations, and edema, Respiratory: Negative for shortness of breath, cough, wheezing, and pleuritic chest pain. 16:39 Back: Negative for injury and pain, : Negative for injury, bleeding, discharge, and swelling, MS/Extremity: Negative for injury and deformity, Skin: Negative for injury, rash, and discoloration, Neuro: Negative for headache, weakness, numbness, tingling, and seizure. 16:39 Constitutional: Positive for body aches, malaise, poor PO intake. 16:39 Abdomen/GI: Positive for anorexia. 16:39 Psych: Positive for anxiety, depression, insomnia. Exam: 16:37 Head/Face: Normocephalic, atraumatic. Eyes: Pupils equal round and reactive to light, snw extra-ocular motions intact. Lids and lashes normal. Conjunctiva and sclera are non-icteric and not injected. Cornea within normal limits. Periorbital areas with no swelling, redness, or edema. ENT: Nares patent. No nasal discharge, no septal abnormalities noted. Tympanic membranes are normal and external auditory canals are clear. Oropharynx with no redness, swelling, or masses, exudates, or evidence of obstruction, uvula midline. Mucous membranes moist. Neck: Trachea midline, no thyromegaly or masses palpated, and no cervical lymphadenopathy. Supple, full range of motion without nuchal rigidity, or vertebral point tenderness. No Meningismus. Chest/axilla: Normal chest wall appearance and motion. Nontender with no deformity. No lesions are appreciated. 16:37 Respiratory: Lungs have equal breath sounds bilaterally, clear to auscultation and percussion. No rales, rhonchi or wheezes noted. No increased work of breathing, no retractions or nasal flaring. Abdomen/GI: Soft, non-tender, with normal bowel sounds. No distension or tympany. No guarding or rebound. No evidence of tenderness throughout. Back: No spinal tenderness. No costovertebral tenderness. Full range of motion. Skin: Warm, dry with normal turgor. Normal color with no rashes, no lesions, and no evidence of cellulitis. MS/ Extremity: Pulses equal, no cyanosis. Neurovascular intact. Full, normal range of motion. Neuro: Awake and alert, GCS 15, oriented to person, place, time, and situation. Cranial nerves II-XII grossly intact. Motor strength 5/5 in all extremities. Sensory grossly intact. Cerebellar exam normal. Normal gait. 16:37 Constitutional: The patient appears awake, does not communicate. Will not answer questions. Family at bedside, state pt has some mental issues. 16:37 Chest/axilla: Inspection: normal, Palpation: is normal. 16:37 Cardiovascular: Rate: tachycardic, Rhythm: regular. 16:37 Psych: Behavior/mood is anxious, inappropriate for age, Affect is flat, Oriented to person, place, time, Patient has no thoughts/intents to harm self or others. Vital Signs: 14:15 BP 140 / 96; Pulse 105; Resp 16; Temp 97.8(O); Pulse Ox 100% on R/A; Weight 49.9 kg; hb Height 5 ft. 4 in. (162.56 cm); Pain 0/10; 14:45 BP 105 / 68; Pulse 95; Resp 16; Temp 98.0(O); Pulse Ox 100% on R/A; eh3 15:57 BP 105 / 82; Pulse 93; Resp 16; Pulse Ox 100% on R/A; eh3 17:03 BP 103 / 67; Pulse 86; Resp 16; Pulse Ox 100% on R/A; eh3 18:00 BP 104 / 76; Pulse 78; Resp 16; Pulse Ox 100% on R/A; eh3 19:00 BP 108 / 82; Pulse 68; Resp 16; Pulse Ox 100% on R/A; eh3 14:15 Body Mass Index 18.88 (49.90 kg, 162.56 cm) hb MDM: 15:24 Patient medically screened. snw 18:43 Data reviewed: vital signs, nurses notes. Data interpreted: Pulse oximetry: on room air snw is 100 %. Interpretation: normal. Counseling: I had a detailed discussion with the patient and/or guardian regarding: the historical points, exam findings, and any diagnostic results supporting the discharge/admit diagnosis, lab results, radiology results, the need for outpatient follow up, to return to the emergency department if symptoms worsen or persist or if there are any questions or concerns that arise at home. Response to treatment: the patient's symptoms have mildly improved after treatment. Special discussion: Based on the history and exam findings, there is no indication for further emergent testing or inpatient evaluation. I discussed with the patient/guardian the need to see the primary care provider for further evaluation of the symptoms. I discussed with the patient/guardian the need to see the psychiatrist for further evaluation of the symptoms. 12/20 15:34 Order name: TSH; Complete Time: 17:04 snw 12/20 15:34 Order name: CBC with Diff; Complete Time: 16:56 snw 12/20 15:34 Order name: CMP; Complete Time: 17:04 snw 12/20 15:34 Order name: Urine Culture snw 12/20 15:34 Order name: Urine Microscopic Only; Complete Time: 17:24 snw 12/20 15:34 Order name: Flu; Complete Time: 17:24 snw 12/20 15:34 Order name: Urine Dipstick-Ancillary (obtain specimen); Complete Time: 17:14 snw 12/20 15:34 Order name: Sed Rate; Complete Time: 16:56 snw 12/20 17:09 Order name: Urine Dipstick-Ancillary; Complete Time: 17:24 EDMS Administered Medications: 17:03 Drug: NS 0.9% 1000 ml Route: IV; Rate: 1 bolus; Site: left antecubital; 3 21:00 Follow up: IV Status: Order to discontinue infusion; IV Intake: 500ml 3 18:04 Drug: D5-NS 1000 ml Route: IV; Rate: bolus; Site: left antecubital; 3 19:50 Follow up: IV Status: Completed infusion; IV Intake: 1000ml 3 Disposition: 17:14 Co-signature as Attending Physician, Humza Larios DO. Co-signature as Attending dc3 Physician, Humza Larios DO I was immediately available onsite in the emergency department for consultation in the care of the patient. Disposition Summary: 12/20/21 18:41 Discharge Ordered Location: Home snw Condition: Stable snw Diagnosis - Dehydration snw Followup: snw - With: Emergency Department - When: As needed - Reason: Worsening of condition Followup: snw - With: Private Physician - When: 1 - 2 days - Reason: Recheck today's complaints, Continuance of care, Re-evaluation by your physician Discharge Instructions: - Discharge Summary Sheet snw - Dehydration, Adult snw - Rehydration, Adult snw - Supporting Someone With Depression snw - Managing Depression, Adult snw - Insomnia snw Forms: - Medication Reconciliation Form snw - Thank You Letter snw - Antibiotic Education snw - Prescription Opioid Use snw Prescriptions: - promethazine 25 mg Oral Tablet - take 1 tablet by ORAL route every 6 hours As needed; 20 tablet; Refills: 0, snw Product Selection Permitted Signatures: Dispatcher [employer] EDMS Aundrea Castanon FNP-C AIR SEALING TECHNICIAN-Csnw Tata Hermosillo RN RN hb Sims, Marcus, DO DO ms3 Katey Ortiz RN RN 3 Corrections: (The following items were deleted from the chart) 14:15 14:15 Allergies: No Known Allergies; hb hb
[2021-12-20] MEDS ORDERED: PROMETHAZINE INJ 25 MG/ML AMP ONE (19:44)
[2021-12-20 20:42] VITALS: O2SAT 100
[2021-12-20 20:44] VITALS: TEMP 98
[2021-12-20 20:48] VITALS: BP 104/76
== END 2021-12-20 19:59 | disposition home or self-care (01) ==
LOC: ER 14:09
DX: E86.0 Dehydration (principal); R63.0 Anorexia
CPT/HCPCS: 36415; 80053; 81003; 81015; 84443; 85025; 85652; 87077; 87086; 87088; 87186; 87804; 96360; 96361; 99284; J2550; J7042

== ENCOUNTER 2022-11-05 22:41 | Emergency (ER) | payer OTHER ==
--- OUTSIDE RECORDS SUMMARY | 2022-11-05 22:46 | XMS REPORT | Continuity of Care Document ---
:[address] [facility] t Address [address] [place] [address] [place] [address] Care Team Providers Name Role Phone CURT DE LEON Primary Care Physician Unavailable LATA ALEXANDER Attending Clinician Unavailable HOA CERVANTES Attending Clinician Unavailable HENRIQUE PAN Attending Clinician Unavailable CURT DE LEON Attending Clinician Unavailable Curt De Leon NP Attending Clinician Ngrhonda_Tho Attending Clinician Unavailable Rehrer Jacoby KNUTSON Attending Clinician Tanya Cuenca MD Attending Clinician Johnson CRUZ Attending Clinician Unavailable Ngrhonda_Tho Admitting Clinician Unavailable REHRER, DO JACOBY WATSON Admitting Clinician Unavailable Payers Payer Name Policy Type Policy Number Effective Date Expiration Date [facility] [id number] 2023 ASSISTANCE PROGRAM 00:00:00 00:00:00 [facility] COMMUNITY PLAN [id number] 2022 [place] 00:00:00 [place] [facility] [id number] 0024-03-01 2023 PLANNING INDIGENT 00:00:00 00:00:00 [facility] [id number] 2022 [place]UNITY [place] - 00:00:00 STAR+PLUS (MEDICAID REPLACEMENT - HMO) Problems Condition Condition Condition Status Onset Resolution Last Treating Co mments Source Name Details Category Date Date Treatment Clinician Date 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 Heal th features Features Outrea c h Program Eczema Eczema Problem Active [place] -15 da 00:00: [facility] Allergies, Adverse Reactions, Alerts Allergy Allergy Status Severity Reaction(s) Onset Inactive Treating Comm ents Source Name Type Date Date Clinician NO KNOWN Drug Active [facility] ALLERGIE Class ity of [facility] Social History Social Habit Start Date Stop Date Quantity Comments Source Sexual orientation [facility] Exposure to 2022-06-18 2022-06-28 Not sure [facility] SARS-CoV-2 (event) 00:00:00 11:12:00 Tobacco use and 2022-06-28 2022-06-28 Smokeless Formerly [facility] exposure 00:00:00 00:00:00 tobacco non-user Alcohol intake 2022-06-28 2022-06-28 Ex-drinker [facility] lt 00:00:00 00:00:00 (finding) History of Social 2021-12-26 2021-12-[address] function 00:00:00 00:00:00 Hospital Sex Assigned At [birth year] [facility] 00:00:00 00:00:00 Hospital Smoking Status Start Date Stop Date Source Tobacco smoking consumption unknown [facility] Never smoked tobacco [facility] Medications Ordered Filled Start Stop Current Ordering Indication Dosage Frequency Signature Comments Components Source Medication Medication Date Date Medication? Clinician (SIG) Name Name mirtazapine mirtazapine 2021-02 No 45mg mirtazapin [place] 45 mg 45 mg 02-25 e 45 mg da tablet 45 tablet 45 00:00: 00:00 tablet 45 [facility] mg by oral mg by oral 00 :00 mg by oral al route. route. route. Health Outreac h Program Zyprexa 2.5 Zyprexa 2.5 2021-02 No 2.5mg BID Zyprexa [place] mg tablet mg tablet 02-25 2.5 mg da 2.5 mg 2.5 mg 00:00: 00:00 tablet 2.5 Ep [facility] twice a day twice a day 00 :00 mg twice a al by oral by oral day by Health route. route. oral Outreac route. h Program OLANZapine 2021-02- No 2.5mg Q.5D Take 1 [facility] (ZyPREXA) 02-[address] 2.5 MG 00:00: 05:59 (2.5 mg Hospita tablet 00 :00 total) by l mouth 2 (two) times a day for 30 days. mirtazapine 2021-02 No 45mg QD Take 1 [facility] (REMERON) 02-25 tablet (45 st 45 MG 00:00: 05:59 mg total) Hospit a tablet 00 :00 by mouth l nightly for 30 days. Abilify 5 Abilify 5 No 1 Q1D [...] 30 morning days. days. for 30 days. ciprofloxac ciprofloxac No ciprofloxa [place] in 500 mg in 500 mg aisha 500 mg da tablet TAKE tablet TAKE tablet [facility] 1 TABLET BY 1 TABLET BY TAKE 1 al MOUTH EVERY MOUTH EVERY TABLET BY Health 24 HOURS 24 HOURS MOUTH Outrea c FOR 3 DAYS FOR 3 DAYS EVERY 24 h HOURS FOR Program 3 DAYS fluconazole fluconazole No fluconazol [place] 150 mg [...] BEDTIME EVERY DAY h AT BEDTIME Program promethazin promethazin No promethazi [place] e 25 mg e 25 mg ne 25 mg da tablet TAKE tablet TAKE tablet [facility] 1 TABLET BY 1 TABLET BY TAKE 1 al MOUTH EVEYR MOUTH EVEYR TABLET BY Health 6 HOURS 6 HOURS MOUTH Ou treac NEEDED FOR NEEDED FOR EVEYR 6 h NAUSEA NAUSEA HOURS Program NEEDED FOR NAUSEA triamcinolo triamcinolo No triamcinol [place] ne ne [...] one not sone not effective effective effective mirtazapine mirtazapine No 45mg Q1D mirtazapin [place] 45 mg 45 mg e 45 mg da tablet Take tablet Take tablet [facility] 45 mg every 45 mg every Take 45 mg al day by oral day by oral every day Health route at route at by oral Outr eac bedtime for bedtime for route at h 30 days. 30 days. bedtime Prog shila for 30 days. Zyprexa 10 Zyprexa 10 No 1 Q1D Zyprexa 10 [place] mg tablet mg tablet mg tablet da Take 1 Take 1 Take 1 [facility] tablet tablet tablet al every day every day every day Health by oral by oral by oral Outrea c route at route at route at h bedtime for bedtime for bedtime Program 30 days. 30 days. for 30 days. mirtazapine mirtazapine No 45mg Q1D mirtazapin [place] 45 mg 45 mg e 45 mg da tablet Take tablet Take tablet [facility] 45 mg every 45 mg every Take 45 mg al day by oral day by oral every day Health route at route at by oral Outr eac bedtime for bedtime for route at h 30 days. 30 days. bedtime Prog shila for 30 days. Zyprexa 10 Zyprexa 10 No 1 Q1D Zyprexa 10 [place] mg tablet mg tablet mg tablet da Take 1 Take 1 Take 1 [facility] tablet tablet tablet al every day every day every day Health by oral by oral by oral Outrea c route at route at route at h bedtime for bedtime for bedtime Program 30 days. 30 days. for 30 days. mirtazapine mirtazapine No 45mg Q1D mirtazapin [place] 45 mg 45 mg e 45 mg da tablet Take tablet Take tablet [facility] 45 mg every 45 mg every Take 45 mg al day by oral day by oral every day Health route at route at by oral Outr eac bedtime for bedtime for route at h 30 days. 30 days. bedtime Prog shila for 30 days. Zyprexa 10 Zyprexa 10 No 1 Q1D Zyprexa 10 [place] mg tablet mg tablet mg tablet da Take 1 Take 1 Take 1 [facility] tablet tablet tablet al every day every day every day Health by oral by oral by oral Outrea c route at route at route at h bedtime for bedtime for bedtime Program 30 days. 30 days. for 30 days. Abilify 2 Abilify 2 No 1 Q1D Abilify 2 [place] mg tablet mg tablet mg tablet da Take 1 Take 1 Take 1 [facility] tablet tablet tablet al every day every day every day Health by oral by oral by oral Outrea c route with route with route with h meals for meals for meals for Program 30 days. 30 days. 30 days. cephalexin cephalexin No cephalexin [place] 500 mg 500 mg 500 mg da capsule capsule capsule [facility] TAKE 1 TAKE 1 TAKE 1 al CAPSULE BY CAPSULE BY CAPSULE BY Health MOUTH 4 MOUTH 4 MOUTH 4 Outrea c TIMES A DAY TIMES A DAY TIMES A h FOR UTI FOR UTI DAY FOR Progra m UTI hydrocortis hydrocortis No hydrocorti [place] one 1 [...] TWICE DAILY mirtazapine mirtazapine No mirtazapin [place] 45 mg 45 mg e 45 mg da tablet TAKE tablet TAKE tablet [facility] 1 TABLET BY 1 TABLET BY TAKE 1 al MOUTH EVERY MOUTH EVERY TABLET BY Health DAY AT DAY AT MOUTH Outreac BEDTIME BEDTIME EVERY DAY h AT BEDTIME Program sertraline sertraline No 1 Q1D sertraline [place] 50 mg 50 mg 50 mg da tablet Take tablet Take tablet [facility] 1 tablet 1 tablet Take 1 al every day every day tablet Hea lth by oral by oral every day Outr eac route with route with by oral h meals for meals for route with Program 30 days. 30 days. meals for 30 days. Zyprexa 10 Zyprexa 10 No 1 Q1D Zyprexa 10 [place] mg tablet mg tablet mg tablet da Take 1 Take 1 Take 1 [facility] tablet tablet tablet al every day every day every day Health by oral by oral by oral Outrea c route at route at route at h bedtime for bedtime for bedtime Program 30 days. 30 days. for 30 days. hydrocortis hydrocortis No hydrocorti [place] one 1 [...] by oral Program route for 4 days. hydrocortis hydrocortis No hydrocorti [place] one 1 [...] one not sone not effective effective effective Vital Signs Vital Name Observation Time Observation Value Comments Source Systolic blood 2022-06-28 11:26:00 106 mm[Hg] [facility] pressure Diastolic blood 2022-06-28 11:26:00 73 mm[Hg] [facility] pressure Heart rate 2022-06-28 11:26:00 64 /min [facility] Body temperature 2022-06-28 11:26:00 36.78 Isabelle [facility] is [facility] Respiratory rate 2022-06-28 11:26:00 18 /min [facility] is [facility] Body height 2022-06-28 11:26:00 160 cm [facility] Body weight 2022-06-28 11:26:00 72.485 kg [facility] BMI 2022-06-28 11:26:00 28.31 kg/m2 [facility] Systolic blood 2022-06-28 11:26:00 106 mm[Hg] [facility] pressure Diastolic blood 2022-06-28 11:26:00 73 mm[Hg] [facility] pressure Heart rate 2022-06-28 11:26:00 64 /min [facility] Body temperature 2022-06-28 11:26:00 36.78 Isabelle [facility] Respiratory rate 2022-06-28 11:26:00 18 /min [facility] Body height 2022-06-28 11:26:00 160 cm [facility] Body weight 2022-06-28 11:26:00 72.485 kg [facility] BMI 2022-06-28 11:26:00 28.31 kg/m2 [facility] BP Diastolic 2022-02-16 00:00:00 71 mm[Hg] [place] [facility] Height 2022-02-16 00:00:00 65 [in_i] [place] [facility] BMI (Body Mass 2022-02-16 00:00:00 19.2 kg/m2 [place] change analyst Index) [facility] BP Systolic 2022-02-16 00:00:00 97 mm[Hg] [place] [facility] Body Weight 2022-02-16 00:00:00 1845 [oz_av] [place] [facility] BP Diastolic 2022-01-11 00:00:00 80 mm[Hg] [place] [facility] Height 2022-01-11 00:00:00 65 [in_i] [place] [facility] BMI (Body Mass 2022-01-11 00:00:00 17.9 kg/m2 [place] change analyst Index) [facility] BP Systolic 2022-01-11 00:00:00 115 mm[Hg] [place] [facility] Body Weight 2022-01-11 00:00:00 1717 [oz_av] [place] [facility] BP Diastolic 2021-12-23 00:00:00 77 mm[Hg] [place] [facility] Height 2021-12-23 00:00:00 65 [in_i] [place] [facility] BMI (Body Mass 2021-12-23 00:00:00 18.3 kg/m2 [place] change analyst Index) [facility] BP Systolic 2021-12-23 00:00:00 111 mm[Hg] [place] [facility] Body Weight 2021-12-23 00:00:00 1762 [oz_av] [place] [facility] BP Systolic 2021-11-24 00:00:00 102 mm[Hg] [place] [facility] Body Weight 2021-11-24 00:00:00 117 [lb_av] [place] [facility] BP Diastolic 2021-11-24 00:00:00 74 mm[Hg] [place] [facility] Height 2021-11-24 00:00:00 65 [in_i] [place] [facility] BMI (Body Mass 2021-11-24 00:00:00 19.5 kg/m2 [place] change analyst Index) [facility] BP Diastolic 2021-11-18 00:00:00 70 mm[Hg] [place] [facility] Height 2021-11-18 00:00:00 65 [in_i] [place] [facility] BMI (Body Mass 2021-11-18 00:00:00 20 kg/m2 [place] change analyst Index) [facility] BP Systolic 2021-11-18 00:00:00 101 mm[Hg] [place] [facility] Body Weight 2021-11-18 00:00:00 1920 [oz_av] [place] [facility] BP Diastolic 2021-10-23 00:00:00 79 mm[Hg] [place] [facility] Height 2021-10-23 00:00:00 65 [facility] BMI (Body Mass 2021-10-23 00:00:00 19.1 kg/m2 [facility] change analyst Index) [facility] BP Systolic 2021-10-23 00:00:00 114 mm[Hg] [facility] Body Weight 2021-10-23 00:00:00 1840 [facility]oz_av] [facility] Systolic blood 2021-12-26 16:48:57 111 mm[Hg] [facility] pressure Diastolic blood 2021-12-26 16:48:57 67 mm[Hg] [facility] pressure Heart rate 2021-12-26 16:48:57 76 /min [facility] Body temperature 2021-12-26 16:48:57 36.89 Isabelle [facility] Respiratory rate 2021-12-26 16:48:57 16 /min [facility] Oxygen saturation in 2021-12-26 16:48:57 100 /min [facility] Arterial blood by Pulse oximetry Body height 2021-12-26 02:45:00 162.6 cm [facility] Body weight 2021-12-26 02:45:00 49.896 kg [facility] BMI 2021-12-26 02:45:00 18.88 kg/m2 [facility] Procedures Procedure Date / Time Performing Clinician Source Performed Syphilis Screen for 2022-06-28 00:00:00 Everardo deshpande Infection HIV Ag/Ab Combo Routine 2022-06-28 00:00:00 [facility] Screening CBC w/Differential 2022-06-28 00:00:00 Everardo pennington Comprehensive Metabolic 2022-06-28 00:00:00 [facility] Panel TSH [Thyroid Stimulating 2022-06-28 00:00:00 [facility] Health Hormone] Lipid Profile 2022-06-28 00:00:00 Everardo gould Hemoglobin A1C 2022-06-28 00:00:00 Everardo gould URINE CULTURE 2021-12-26 06:50:00 Jacoby Turcios [facility] URINALYSIS SCREEN AND 2021-12-26 06:04:00 Rehrer, [facility] MICROSCOPY, WITH REFLEX TO CULTURE URINE DRUGS OF ABUSE 2021-12-26 06:04:00 Rehrer, [facility] SCREEN HCG QUALITATIVE, URINE 2021-12-26 06:04:00 Rehrer, [facility] SCREEN ECG ED PRELIMINARY 2021-12-26 05:03:05 Rehrer, [facility] INTERPRETATION ECG 12-LEAD 2021-12-26 03:57:14 Rehrer, [facility] COVID-19 QUALITATIVE 2021-12-26 03:25:00 Rehrer, [facility] RT-PCR CBC WITH PLATELET AND 2021-12-26 03:25:00 Rehrer, [facility] DIFFERENTIAL COMPREHENSIVE METABOLIC 2021-12-26 03:25:00 Rehrer, [facility] PANEL T4, FREE 2021-12-26 03:25:00 Rehrer, [facility] THYROID STIMULATING 2021-12-26 03:25:00 Rehrer, [facility] HORMONE CREATINE KINASE, TOTAL 2021-12-26 03:25:00 Rehrer, [facility] (CPK) VENOUS BLOOD GAS 2021-12-26 03:25:00 Rehrer, [facility] ESTIMATED GFR 2021-12-26 03:25:00 Rehrer, [facility] ACETAMINOPHEN LEVEL 2021-12-26 03:25:00 Rehrer, [facility] ALCOHOL LEVEL, BLOOD 2021-12-26 03:25:00 Rehrer, [facility] MAGNESIUM LEVEL 2021-12-26 03:25:00 Rehrer, [facility] PHOSPHORUS LEVEL 2021-12-26 03:25:00 Rehrer, [facility] SALICYLATE LEVEL 2021-12-26 03:25:00 Rehrer, [facility] HCG QUANTITATIVE, SERUM 2021-12-26 03:25:00 Rehrer, [facility] US, pelvis, complete 2021-11-24 00:00:00 Odette guerrero [facility] US, thyroid 2021-11-18 00:00:00 Vince Bruno [facility] Out[facility] Plan of Care Planned Activity Planned Date Details Comments Source Future Scheduled Generalized Anxiety Stanley echevarrai [employer] [facility] Test Disorder [facility] Outre ach Treatment Plan -Develop Prog shila coping regarding person's difficulties managing worrying -Develop coping skills to address restlessness -Develop coping skills to address fatigue -Develop coping skills to address difficulties with concentration -Develop coping skills to address irritability -Develop coping skills to address muscle tension -Develop coping skills to address sleep disturbances -Address SHABBIR impact on social functioning -Address SHABBIR impact on occupational functioning -Address SHABBIR impact on activities of daily living [code = Generalized Anxiety Disorder Master Treatment Plan -Develop coping regarding person's difficulties m] Encounters Start End Encounter Admission Attending Care Care Encounter Source Date/Time Date/Time Type Type Clinicians Facility Department ID 2022-10-30 Inpatient TEX[place] TEX[place] [id number] [place] 23:08:06 [id number] [place] 2022-10-28 Inpatient TEXANA TEXANA [id number] [place] 15:21:23 [id number] [place] 2022-10-26 Inpatient TEXANA TEXANA [id number] [place] 14:14:27 [id number] [place] 2022-10-22 Inpatient TEXANA TEXANA [id number] [place] 15:41:11 [id number] [place] 2022-10-21 Inpatient TEX[place] TEXANA [id number] [place] 10:51:29 [id number] [place] 2022-10-19 Inpatient TEXANA TEXANA [id number] [place] 12:08:58 [id number] [place] 2022-09-11 Outpatient [facility] [id number] [place] 10:10:33 [id number] [facility] 2022-07-02 Outpatient [facility] [id number] [place] 14:51:27 [id number] [facility] 2022-05-06 Outpatient [facility] [id number] [place] 16:23:04 [id number] [facility] 2022-04-21 Outpatient [facility] [id number] [place] 11:05:07 [id number] [facility] 2021-12-26 Outpatient [facility] [id number] [place] 02:05:56 [id number] [facility] 2022-10-14 2022-10-14 Lilibeth [place] - [id number] [place] 00:00:00 00:00:00 Vince Agee PMHNP: [facility] [address] [facility] [id number] [facility] , Ph. [phone] 2022-10-07 Outpatient LATA ALEXANDER [facility] [id number] [place] 00:00:00 00:00:00 [facility] 2022-10-05 2022-10-05 Outpatient [facility] [id number] [place] 00:00:00 00:00:00 [facility] 2022-10-05 2022-10-05 Outpatient [facility] [id number] [place] 00:00:00 00:00:00 [facility] 2022-09-15 2022-09-15 Outpatient HOA CERVANTES [facility] [id number] [place] 00:00:00 00:00:00 [facility] 2022-08-14 2022-08-14 Emergency ER PAN, [facility] [id number] [place] 01:54:00 03:17:00 [id number] Critical access hospital 2022-08-12 2022-08-12 Outpatient LATA ALEXANDER [facility] [id number] [place] 00:00:00 00:00:00 [facility] 2022-07-29 2022-07-29 [facility] [id number] [place] 15:57:21 15:57:23 [facility] 2022-07-29 2022-07-29 [facility] [id number] [place] 12:02:32 12:57:52 [facility] 2022-07-15 2022-07-15 [facility]patient [facility] [id number] [place] 00:00:00 00:00:00 [facility] 2022-07-15 2022-07-15 [facility] [id number] [place] 00:00:00 00:00:00 [facility] 2022-06-28 2022-06-28 [facility]patient [facility] [id number] [place] 12:50:13 12:50:13 [facility] 2022-06-28 2022-06-28 Outpatient HALEY [facility] [id number] [place] 11:40:27 12:47:42 [facility] 2022-06-28 2022-06-28 Office ANNIE De Leon [id number] [place] 11:00:00 12:47:42 Visit Curt Mg QUARLES [facility].1.13.43 [facility] .[id number] HOMER GLEN [id number] [id number] 2022-06-17 Outpatient Nguyen_Tho MEHOP MEHOP [id number] [place] 00:00:00 00:00:00 [id number] [facility] 2022-06-17 2022-06-17 Outpatient Nguyen_Tho MEHOP MEHOP [id number] [place] 00:00:00 00:00:00 [id number] [facility] 2022-06-17 2022-06-17 Outpatient Nguyen_Tho MEHOP MEHOP [id number] [place] 00:00:00 00:00:00 [id number] [facility] 2022-06-17 2022-06-17 Outpatient Nguyen_Tho MEHOP MEHOP [id number] [place] 00:00:00 00:00:00 [id number] [facility] 2022-04-09 2022-04-09 Outpatient Nguyen_Tho MEHOP MEHOP [id number] [place] 00:00:00 00:00:00 [id number] [facility] 2022-04-02 2022-04-02 Outpatient Nguyen_Tho MEHOP MEHOP [id number] [place] 00:00:00 00:00:00 [id number] [facility] 2022-02-24 2022-02-24 Outpatient Nguyen_Tho MEHOP MEHOP [id number] [place] 00:00:00 00:00:00 [id number] [facility] 2022-02-17 2022-02-17 Outpatient Nguyen_Juan R GAHOP GAHOP [id number] [place] 00:00:00 00:00:00 [id number] [facility] 2022-02-16 2022-02-16 Outpatient NgPetrona GAHOP MEHOP [id number] [place] 00:00:00 00:00:00 [id number] [facility] 2022-02-16 2022-02-16 [facility] [place] - [id number] M [place] 00:00:00 00:00:00 Vince Suárez 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 2022-02-15 2022-02-15 Outpatient Ngrhonda_Juan R GAHOP GAHOP [id number] [place] 00:00:00 00:00:00 [id number] [facility] 2022-02-09 2022-02-09 Outpatient NgPetrona [facility] [id number] [place] 00:00:00 00:00:00 [id number] [facility] 2022-02-09 2022-02-09 [facility] [place] - [id number] [place] 00:00:00 00:00:00 MD Yusef: Vince khalil 1700 [facility][note 2] [address] h , Ph. 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 2021-12-28 2021-12-28 [place] [id number] [place] 00:00:00 00:00:00 [id number] [facility] 2021-12-25 2021-12-26 Emergency Rehrer, [facility] [id number] Methodi 20:52:00 16:40:[id number] 3.430.2.7 Hospit a .[id number] l .8 2021-12-25 2021-12-26 Emergency [facility] [id number] [place] [address] 00:00:00 00:00:[address] 2021-12-25 2021-12-25 [place] [id number] [place] 00:00:00 00:00:00 [id number] [facility] 2021-12-25 2021-12-25 Travel [id number] Methodi 00:00:00 00:00:[id number] 3.430.2.7 0.2.7.3.698 [facility] .[id number] 084.8 l .8 2021-12-23 2021-12-23 Out[place] [id number] [place] 00:00:00 00:00:00 [id number] da [facility] 2021-12-23 2021-12-23 [facility] [place] - [id number] M atagor 00:00:00 00:00:00 Vince Suárez 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 2021-12-16 2021-12-16 Outpatient Ngevangelisten_Yaneo [facility] [id number] [place] 00:00:00 00:00:00 [id number] [facility] 2021-12-10 2021-12-10 Outpatient Nguyen_Yaneo [facility] [address] [place] 00:00:00 00:00:00 [id number] [facility] 2021-12-10 2021-12-10 [facility] [id number] [place] 00:00:00 00:00:00 MD Yusef: Vince khalil 1700 [employer] [facility] [place] 2] [id number] h , Ph. 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 2021-11-18 2021-11-18 Outpatient Ngevangelisten_Yaneo [facility] [address] [place] 00:00:00 00:00:00 [id number] [facility] 2021-11-18 2021-11-18 [facility] [place] - [id number] [place] 00:00:00 00:00:00 Suárez, [place] da [employer] NET-GLASS ROLLING MACHINE OPERATOR-C: [employer] Epi scop 1700 [facility] - [facility] [address], [facility] [address] Errol grady , Ph. 2021-11-12 2021-11-12 Outpatient Ngrhonda_Juan R [facility] [address] [place] 00:00:00 00:00:00 [id number] [facility] 2021-11-12 2021-11-[address] [facility] - [id number] [place] 00:00:00 00:00:00 MD Yusef: Vince khalil 1700 [employer] [facility] [place] 2[place] [address] h , Ph. 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 2021-10-12 2021-10-12 Outpatient Nguyen_Yaneo [facility] [address] [place] 00:00:00 00:00:00 [facility] 2021-10-05 2021-10-05 Outpatient Nguyen_o [facility] [address] [place] 00:00:00 00:00:00 [facility] 2021-07-12 2021-07-13 Emergency X Johnson [email or web address] ERT [id number] [employer] 21:40:00 01:50:00 [facility] Results Test Description Test Time Test Comments Results Result Comments Source Urinalysis macro (dipstick) panel - Urine 2022-02-16 15:07:3 9 Test Item Value Reference Range Interpretation Comme nts Leukocytes (test code = Leukocytes) - Nitrite (test code = Nitrite) - Urobilinogen (test code = Urobilinogen) - Protein (test code = Protein) - pH (test code = pH) 7.5 Blood (test code = Blood) - Specific [place] (test code = Specific [place]) 1.020 Ketone (test code = Ketone) - Bilirubin (test code = Bilirubin) - Glucose (test code = Glucose) - Appearance (test code = Appearance) cloudy Color (test code = Color) dark yellow [facility] Urine by [id number] 00:00:00 Test Item Value Reference Range Interpretation Comments Bacteria identified in Urine by comment Culture (test code = 630-4) [facility] identified in Urine by [id number] 00:00:00 Test Item Value Reference Range Interpretation Comments Bacteria identified in Urine by comment Culture (test code = 630-4) [facility] W Auto Differential panel - Blood 2022-01-12 00:00:00 Test Item Value Reference Range Interpretation Comments Leukocytes [#/volume] in Blood 4.5 x10e3/uL 3.4-10.8 by Automated count (test code = 6690-2) Erythrocytes [#/volume] in 4.77 x10e6/uL 3.77-5.28 Blood by Automated count (test code = 789-8) Hemoglobin [Mass/volume] in 13.3 g/dL 11.1-15.9 Blood (test code = 718-7) Hematocrit [Volume Fraction] of 40.5 % 34.0-46.6 Blood by Automated count (test code = 4544-3) Erythrocyte mean corpuscular 85 fL 79-97 volume [Entitic volume] by Automated count (test code = 787-2) Erythrocyte mean corpuscular 27.9 pg 26.6-33.0 hemoglobin [Entitic mass] by Automated count (test code = 785-6) Erythrocyte mean corpuscular 32.8 g/dL 31.5-35.7 hemoglobin concentration [Mass/volume] by Automated count (test code = 786-4) Erythrocyte distribution width 13.2 % 11.7-15.4 [Ratio] by Automated count (test code = 788-0) Platelets [#/volume] in Blood 241 x10e3/uL 150-450 by Automated count (test code = 777-3) Neutrophils/100 leukocytes in 43 % not estab. Blood by Automated count (test code = 770-8) Lymphocytes/100 leukocytes in 40 % not estab. Blood by Automated count (test code = 736-9) Monocytes/100 leukocytes in 8 % not estab. Blood by Automated count (test code = 5905-5) Eosinophils/100 leukocytes in 8 % not estab. Blood by Automated count (test code = 713-8) Basophils/100 leukocytes in 1 % not estab. Blood by Automated count (test code = 706-2) immature cells (test code = clam grader immature cells) Neutrophils [#/volume] in Blood 1.9 x10e3/uL 1.4-7.0 by Automated count (test code = 751-8) Lymphocytes [#/volume] in Blood 1.8 x10e3/uL 0.7-3.1 by Automated count (test code = 731-0) Monocytes [#/volume] in Blood 0.3 x10e3/uL 0.1-0.9 by Automated count (test code = 742-7) Eosinophils [#/volume] in Blood 0.4 x10e3/uL 0.0-0.4 by Automated count (test code = 711-2) Basophils [#/volume] in Blood 0.1 x10e3/uL 0.0-0.2 by Automated count (test code = 704-7) Immature granulocytes/100 0 % not estab. leukocytes in Blood by Automated count (test code = 72163-6) Immature granulocytes 0.0 x10e3/uL 0.0-0.1 [#/volume] in Blood by Automated count (test code = 63493-1) Nucleated erythrocytes/100 clam grader leukocytes [Ratio] in Blood by Automated count (test code = 82602-5) Morphology [Interpretation] in clam grader Blood Narrative (test code = 98500-7) [facility] ProgramCom[facility] 2000 panel - Serum or [id number] 00:00:00 Test Item Value Reference Range Interpretation Comments Glucose [Mass/volume] in 82 mg/dL 70-99 Serum or Plasma (test code = 2345-7) Urea nitrogen [Mass/volume] 8 mg/dL 6-20 in Serum or Plasma (test code = 3094-0) Creatinine [Mass/volume] in 0.84 mg/dL 0.57-1.00 Serum or Plasma (test code = 2160-0) eGFR (test code = eGFR) 100 mL/min/1.73 >59 Urea nitrogen/Creatinine 10 9-23 [Mass Ratio] in Serum or Plasma (test code = 3097-3) Sodium [Moles/volume] in 138 mmol/L 134-144 Serum or Plasma (test code = 2951-2) Potassium [Moles/volume] in 3.9 mmol/L 3.5-5.2 Serum or Plasma (test code = 2823-3) Chloride [Moles/volume] in 101 mmol/L 96-106 Serum or Plasma (test code = 5-0) Carbon dioxide, total 21 mmol/L 20-29 [Moles/volume] in Serum or Plasma (test code = 2027-9) Calcium [Mass/volume] in 9.4 mg/dL 8.7-10.2 Serum or Plasma (test code = 35333-9) Protein [Mass/volume] in 7.4 g/dL 6.0-8.5 Serum or Plasma (test code = 2885-2) Albumin [Mass/volume] in 4.9 g/dL 3.9-5.0 Serum or Plasma (test code = 1751-7) Globulin [Mass/volume] in 2.5 g/dL 1.5-4.5 Serum by calculation (test code = 54637-8) Albumin/Globulin [Mass Ratio] 2.0 1.2-2.2 in Serum or Plasma (test code = 1759-0) Bilirubin.total [Mass/volume] 0.9 mg/dL 0.0-1.2 in Serum or Plasma (test code = 1974-) Alkaline phosphatase 41 IU/L 44-121 L [Enzymatic activity/volume] in Serum or Plasma (test code = 6768-6) Aspartate aminotransferase 13 IU/L 0-40 [Enzymatic activity/volume] in Serum or Plasma (test code = 1920-8) Alanine aminotransferase 6 IU/L 0-32 [Enzymatic activity/volume] in Serum or Plasma (test code = 1742-6) [facility]+Cyanocobalamin [Interpretation] in Serum or [id number] 00:00:00 Test Item Value Reference Range Interpretation Comments Cobalamin (Vitamin B12) [Mass/volume] >2000 232-1245 H in Serum or Plasma (test code = 2132-9) Folate [Mass/volume] in Serum or Plasma >20.0 >3.0 (test code = 2284-8) [facility] Dallas[facility] W Auto Differential panel - Blood 2022-01-12 00:00:00 Test Item Value Reference Range Interpretation Comments Leukocytes [#/volume] in Blood 4.5 x10e3/uL 3.4-10.8 by Automated count (test code = 6690-2) Erythrocytes [#/volume] in 4.77 x10e6/uL 3.77-5.28 Blood by Automated count (test code = 789-8) Hemoglobin [Mass/volume] in 13.3 g/dL 11.1-15.9 Blood (test code = 718-7) Hematocrit [Volume Fraction] of 40.5 % 34.0-46.6 Blood by Automated count (test code = 4544-3) Erythrocyte mean corpuscular 85 fL 79-97 volume [Entitic volume] by Automated count (test code = 787-2) Erythrocyte mean corpuscular 27.9 pg 26.6-33.0 hemoglobin [Entitic mass] by Automated count (test code = 785-6) Erythrocyte mean corpuscular 32.8 g/dL 31.5-35.7 hemoglobin concentration [Mass/volume] by Automated count (test code = 786-4) Erythrocyte distribution width 13.2 % 11.7-15.4 [Ratio] by Automated count (test code = 788-0) Platelets [#/volume] in Blood 241 x10e3/uL 150-450 by Automated count (test code = 777-3) Neutrophils/100 leukocytes in 43 % not estab. Blood by Automated count (test code = 770-8) Lymphocytes/100 leukocytes in 40 % not estab. Blood by Automated count (test code = 736-9) Monocytes/100 leukocytes in 8 % not estab. Blood by Automated count (test code = 5905-5) Eosinophils/100 leukocytes in 8 % not estab. Blood by Automated count (test code = 713-8) Basophils/100 leukocytes in 1 % not estab. Blood by Automated count (test code = 706-2) immature cells (test code = clam grader immature cells) Neutrophils [#/volume] in Blood 1.9 x10e3/uL 1.4-7.0 by Automated count (test code = 751-8) Lymphocytes [#/volume] in Blood 1.8 x10e3/uL 0.7-3.1 by Automated count (test code = 731-0) Monocytes [#/volume] in Blood 0.3 x10e3/uL 0.1-0.9 by Automated count (test code = 742-7) Eosinophils [#/volume] in Blood 0.4 x10e3/uL 0.0-0.4 by Automated count (test code = 711-2) Basophils [#/volume] in Blood 0.1 x10e3/uL 0.0-0.2 by Automated count (test code = 704-7) Immature granulocytes/100 0 % not estab. leukocytes in Blood by Automated count (test code = 24284-1) Immature granulocytes 0.0 x10e3/uL 0.0-0.1 [#/volume] in Blood by Automated count (test code = 16434-3) Nucleated erythrocytes/100 clam grader leukocytes [Ratio] in Blood by Automated count (test code = 49808-5) Morphology [Interpretation] in clam grader Blood Narrative (test code = 02150-8) [facility] ProgramComprehensive metabolic 2000 panel - Serum or [id number] 00:00:00 Test Item Value Reference Range Interpretation Comments Glucose [Mass/volume] in 82 mg/dL 70-99 Serum or Plasma (test code = 2345-7) Urea nitrogen [Mass/volume] 8 mg/dL 6-20 in Serum or Plasma (test code = 3094-0) Creatinine [Mass/volume] in 0.84 mg/dL 0.57-1.00 Serum or Plasma (test code = 2160-0) eGFR (test code = eGFR) 100 mL/min/1.73 >59 Urea nitrogen/Creatinine 10 9-23 [Mass Ratio] in Serum or Plasma (test code = 3097-3) Sodium [Moles/volume] in 138 mmol/L 134-144 Serum or Plasma (test code = 2951-2) Potassium [Moles/volume] in 3.9 mmol/L 3.5-5.2 Serum or Plasma (test code = 2823-3) Chloride [Moles/volume] in 101 mmol/L 96-106 Serum or Plasma (test code = 5-0) Carbon dioxide, total 21 mmol/L 20-29 [Moles/volume] in Serum or Plasma (test code = 2027-9) Calcium [Mass/volume] in 9.4 mg/dL 8.7-10.2 Serum or Plasma (test code = 91772-1) Protein [Mass/volume] in 7.4 g/dL 6.0-8.5 Serum or Plasma (test code = 2885-2) Albumin [Mass/volume] in 4.9 g/dL 3.9-5.0 Serum or Plasma (test code = 1751-7) Globulin [Mass/volume] in 2.5 g/dL 1.5-4.5 Serum by calculation (test code = 99445-8) Albumin/Globulin [Mass Ratio] 2.0 1.2-2.2 in Serum or Plasma (test code = 1759-0) Bilirubin.total [Mass/volume] 0.9 mg/dL 0.0-1.2 in Serum or Plasma (test code = 1974-2) Alkaline phosphatase 41 IU/L 44-121 L [Enzymatic activity/volume] in Serum or Plasma (test code = 6768-6) Aspartate aminotransferase 13 IU/L 0-40 [Enzymatic activity/volume] in Serum or Plasma (test code = 1920-8) Alanine aminotransferase 6 IU/L 0-32 [Enzymatic activity/volume] in Serum or Plasma (test code = 1742-6) [facility] ProgramFolate+Cyanocobalamin [Interpretation] in Serum or [id number] 00:00:00 Test Item Value Reference Range Interpretation Comments Cobalamin (Vitamin B12) [Mass/volume] >2000 232-1245 H in Serum or Plasma (test code = 2131-9) Folate [Mass/volume] in Serum or Plasma >20.0 >3.0 (test code = 2284-8) [facility] macro (dipstick) panel - [id number] 15:14:20 Test Item Value Reference Range Interpretation Comments Leukocytes (test code = + Leukocytes) Nitrite (test code = Nitrite) - Urobilinogen (test code = - Urobilinogen) Protein (test code = Protein) 1+ pH (test code = pH) 6.5 Blood (test code = Blood) - Specific [place] (test code = 1.020 Specific [place]) Ketone (test code = Ketone) + Bilirubin (test code = 1+ Bilirubin) Glucose (test code = Glucose) - Appearance (test code = condensated Appearance) Color (test code = Color) dark orange. [facility] Dallas[facility]inalysis macro (dipstick) panel - [id number] 15:14:20 Test Item Value Reference Range Interpretation Comments Leukocytes (test code = + Leukocytes) Nitrite (test code = Nitrite) - Urobilinogen (test code = - Urobilinogen) Protein (test code = Protein) 1+ pH (test code = pH) 6.5 Blood (test code = Blood) - Specific [place] (test code = 1.020 Specific [place]) Ketone (test code = Ketone) + Bilirubin (test code = 1+ Bilirubin) Glucose (test code = Glucose) - Appearance (test code = condensated Appearance) Color (test code = Color) dark orange. [facility] Dallas[facility]inalysis macro (dipstick) panel - [id number] 15:14:20 Test Item Value Reference Range Interpretation Comments Leukocytes (test code = + Leukocytes) Nitrite (test code = Nitrite) - Urobilinogen (test code = - Urobilinogen) Protein (test code = Protein) 1+ pH (test code = pH) 6.5 Blood (test code = Blood) - Specific [place] (test code = 1.020 Specific [place]) Ketone (test code = Ketone) + Bilirubin (test code = 1+ Bilirubin) Glucose (test code = Glucose) - Appearance (test code = condensated Appearance) Color (test code = Color) dark orange. [facility] Dallas[facility] [id number] 21:27:00 Test Item Value Reference Range Interpretation Comments Urine culture Mixed tico Specimen isolate (test <=10-3 col/cc InformationSp ecimen code = 98574-3) Source: Urin eSpecimen Site[facility] [id number] 16:26:39 Test Item Value Reference Range Interpretation Comments Ventricular rate (test 80 code = 253) Atrial rate (test code 80 = 255) RI interval (test code 132 = 266) QRSD interval (test 80 code = 260) QT interval (test code 370 = 264) QTC interval (test 426 code = 265) P axis 1 (test code = 74 267) QRS axis 1 (test code 78 = 268) T wave axis (test code 43 = 270) EKG impression (test Normal sinus code = 273) rhythm-Normal ECG-In automated comparison with ECG of 25-DEC-2021 20:33,-T wave inversion no longer evident in Inferior leads-T wave inversion no longer evident in Anterolateral leads- [facility] qualitative, urine [id number] 06:23:00 Test Item Value Reference Range Interpretation Comments hCG qualitative, Negative The manuwendyc turer?s stated urine (test code = sensitivi ty of this assay 6-3) is 20 mIU/mL in urine. [facility] RNA [Presence] in Respiratory specimen by CLAUDINE with probe [id number] 23:12:31 Test Item Value Reference Range Interpretation Comments SARS-CoV-2 (COVID-19) RNA Not detected [Presence] in Respiratory specimen by CLAUDINE with probe detection (test code = 80172-4) Whether patient is employed in a Unknown healthcare setting (test code = 90454-4) Whether the patient has symptoms Unknown related to condition of interest (test code = 11662-1) Whether the patient was Unknown hospitalized for condition of interest (test code = 56444-6) Whether the patient was admitted Unknown to intensive care unit (ICU) for condition of interest (test code = 41149-2) Whether patient resides in a Unknown congregate care setting (test code = 46982-6) status (test code = Unknown 11974-9) Date and time of symptom onset Unknown (test code = 13587-3) [facility] Auto Differential panel - [id number] 00:00:00 Test Item Value Reference Range Interpretation Comments Leukocytes [#/volume] in Blood 6.3 x10e3/uL 3.4-10.8 by Automated count (test code = 6690-2) Erythrocytes [#/volume] in 4.63 x10e6/uL 3.77-5.28 Blood by Automated count (test code = 789-8) Hemoglobin [Mass/volume] in 13.1 g/dL 11.1-15.9 Blood (test code = 718-7) Hematocrit [Volume Fraction] of 40.5 % 34.0-46.6 Blood by Automated count (test code = 4544-3) Erythrocyte mean corpuscular 88 fL 79-97 volume [Entitic volume] by Automated count (test code = 787-2) Erythrocyte mean corpuscular 28.3 pg 26.6-33.0 hemoglobin [Entitic mass] by Automated count (test code = 785-6) Erythrocyte mean corpuscular 32.3 g/dL 31.5-35.7 hemoglobin concentration [Mass/volume] by Automated count (test code = 786-4) Erythrocyte distribution width 13.1 % 11.7-15.4 [Ratio] by Automated count (test code = 788-0) Platelets [#/volume] in Blood 266 x10e3/uL 150-450 by Automated count (test code = 777-3) Neutrophils/100 leukocytes in 47 % not estab. Blood by Automated count (test code = 770-8) Lymphocytes/100 leukocytes in 37 % not estab. Blood by Automated count (test code = 736-9) Monocytes/100 leukocytes in 7 % not estab. Blood by Automated count (test code = 5905-5) Eosinophils/100 leukocytes in 8 % not estab. Blood by Automated count (test code = 713-8) Basophils/100 leukocytes in 1 % not estab. Blood by Automated count (test code = 706-2) immature cells (test code = clam grader immature cells) Neutrophils [#/volume] in Blood 2.9 x10e3/uL 1.4-7.0 by Automated count (test code = 751-8) Lymphocytes [#/volume] in Blood 2.3 x10e3/uL 0.7-3.1 by Automated count (test code = 731-0) Monocytes [#/volume] in Blood 0.4 x10e3/uL 0.1-0.9 by Automated count (test code = 742-7) Eosinophils [#/volume] in Blood 0.5 x10e3/uL 0.0-0.4 H by Automated count (test code = 711-2) Basophils [#/volume] in Blood 0.1 x10e3/uL 0.0-0.2 by Automated count (test code = 704-7) Immature granulocytes/100 0 % not estab. leukocytes in Blood by Automated count (test code = 45883-6) Immature granulocytes 0.0 x10e3/uL 0.0-0.1 [#/volume] in Blood by Automated count (test code = 61276-6) Nucleated erythrocytes/100 clam grader leukocytes [Ratio] in Blood by Automated count (test code = 59910-8) Morphology [Interpretation] in clam grader Blood Narrative (test code = 09021-2) [facility] ProgramComprehensive metabolic 2000 panel - Serum or [id number] 00:00:00 Test Item Value Reference Range Interpretation Comments Glucose [Mass/volume] in 59 mg/dL 70-99 L Serum or Plasma (test code = 2345-7) Urea nitrogen [Mass/volume] 8 mg/dL 6-20 in Serum or Plasma (test code = 3094-0) Creatinine [Mass/volume] in 0.84 mg/dL 0.57-1.00 Serum or Plasma (test code = 2160-0) eGFR (test code = eGFR) 100 mL/min/1.73 >59 Urea nitrogen/Creatinine 10 9-23 [Mass Ratio] in Serum or Plasma (test code = 3097-3) Sodium [Moles/volume] in 141 mmol/L 134-144 Serum or Plasma (test code = 2951-2) Potassium [Moles/volume] in 3.6 mmol/L 3.5-5.2 Serum or Plasma (test code = 2823-3) Chloride [Moles/volume] in 99 mmol/L 96-106 Serum or Plasma (test code = 2075-0) Carbon dioxide, total 18 mmol/L 20-29 L [Moles/volume] in Serum or Plasma (test code = 2027-) Calcium [Mass/volume] in 9.8 mg/dL 8.7-10.2 Serum or Plasma (test code = 09918-8) Protein [Mass/volume] in 7.7 g/dL 6.0-8.5 Serum or Plasma (test code = 2885-2) Albumin [Mass/volume] in 5.1 g/dL 3.9-5.0 H Serum or Plasma (test code = 1751-7) Globulin [Mass/volume] in 2.6 g/dL 1.5-4.5 Serum by calculation (test code = 16117-2) Albumin/Globulin [Mass Ratio] 2.0 1.2-2.2 in Serum or Plasma (test code = 1759-0) Bilirubin.total [Mass/volume] 0.7 mg/dL 0.0-1.2 in Serum or Plasma (test code = 1974-) Alkaline phosphatase 51 IU/L 44-121 [Enzymatic activity/volume] in Serum or Plasma (test code = 6768-6) Aspartate aminotransferase 18 IU/L 0-40 [Enzymatic activity/volume] in Serum or Plasma (test code = 1920-8) Alanine aminotransferase 8 IU/L 0-32 [Enzymatic activity/volume] in Serum or Plasma (test code = 1742-6) [facility] identified in Urine by [id number] 00:00:00 Test Item Value Reference Range Interpretation Comments Bacteria identified in Urine by comment Culture (test code = 630-4) [facility] DallasUrinalysis macro (dipstick) panel - [id number] 17:53:00 Test Item Value Reference Range Interpretation Comments Leukocytes (test code = - Leukocytes) Nitrite (test code = - Nitrite) Urobilinogen (test code = - Urobilinogen) Protein (test code = 1+ Protein) pH (test code = pH) 6.0 Blood (test code = Blood) - Specific [place] (test 1.030 code = Specific [place]) Ketone (test code = 3+ Ketone) Bilirubin (test code = - Bilirubin) Glucose (test code = +- Glucose) Appearance (test code = cloudy Appearance) Color (test code = Color) dark yellow/orange [facility] DallasUrinalysis macro (dipstick) panel - [id number] 17:53:00 Test Item Value Reference Range Interpretation Comments Leukocytes (test code = - Leukocytes) Nitrite (test code = - Nitrite) Urobilinogen (test code = - Urobilinogen) Protein (test code = 1+ Protein) pH (test code = pH) 6.0 Blood (test code = Blood) - Specific [place] (test 1.030 code = Specific [place]) Ketone (test code = 3+ Ketone) Bilirubin (test code = - Bilirubin) Glucose (test code = +- Glucose) Appearance (test code = cloudy Appearance) Color (test code = Color) dark yellow/orange [facility] DallasGlucose [Mass/volume] in Capillary [id number] 17:35:27 Test Item Value Reference Range Interpretation Comments Blood Glucose: mg/dl (test code = Blood 64 Glucose: mg/dl) [facility] DallasGlucose [Mass/volume] in Capillary [id number] 17:35:27 Test Item Value Reference Range Interpretation Comments Blood Glucose: mg/dl (test code = Blood 64 Glucose: mg/dl) [facility]Gl[facility] [Mass/volume] in Capillary [id number] 17:17:01 Test Item Value Reference Range Interpretation Comments Blood Glucose: mg/dl (test code = Blood 56 Glucose: mg/dl) [facility] DallasGlucose [Mass/volume] in Capillary [id number] 17:17:01 Test Item Value Reference Range Interpretation Comments Blood Glucose: mg/dl (test code = Blood 56 Glucose: mg/dl) [facility] DallasFree T4 and TSH panel - Serum or [id number] 00:00:00 Test Item Value Reference Range Interpretation Comments Thyrotropin [Units/volume] in 0.544 uIU/mL 0.450-4.500 Serum or Plasma by Detection limit <= 0.005 mIU/L (test code = 35842-0) Thyroxine (T4) free 0.97 NG/dL 0.82-1.77 [Mass/volume] in Serum or Plasma (test code = 3024-7) [facility] DallasTestosterone free and total panel [Mass/volume] - Serum or [id number] 00:00:00 Test Item Value Reference Range Interpretation Comments Testosterone [Mass/volume] in Serum 26 NG/dL 13-71 or Plasma (test code = 2986-8) Testosterone Free [Mass/volume] in 1.6 pg/mL 0.0-4.2 Serum or Plasma (test code = 2991-8) [facility] DallasHemoglobin A1c/Hemoglobin.total in [id number] 00:00:00 Test Item Value Reference Range Interpretation Comments Hemoglobin A1c/Hemoglobin.total in 5.3 % 4.8-5.6 Blood (test code = 4548-4) [facility] DallasDehydroepiandrosterone sulfate (DHEA- S) [Mass/volume] in Serum or [id number] 00:00:00 Test Item Value Reference Range Interpretation Comments Dehydroepiandrosterone sulfate 205.0 ug/dL 110.0-431.7 (DHEA-S) [Mass/volume] in Serum or Plasma (test code = 2191-5) [facility] DallasChoriogonadotropin.intact+Beta subunit [Units/volume] in Serum or [id number] 00:00:00 Test Item Value Reference Range Interpretation Comments Choriogonadotropin.intact+Beta subunit <1 [Units/volume] in Serum or Plasma (test code = 87239-2) [facility] DallasProlactin [Mass/volume] in Serum or [id number] 00:00:00 Test Item Value Reference Range Interpretation Comments Prolactin [Mass/volume] in Serum 14.7 NG/mL 4.8-23.3 or Plasma (test code = 2842-3) [facility]HIV 1 and 2 tests - Meaningful Use [id number] 00:00:00 Test Item Value Reference Range Interpretation Comments HIV 1+2 Ab+HIV1 p24 Ag non reactive non reactive [Presence] in Serum or Plasma by Immunoassay (test code = 57647-5) [facility] DallasInsulin [Units/volume] in Serum or [id number] 00:00:00 Test Item Value Reference Range Interpretation Comments Insulin [Units/volume] in Serum or 2.3 uIU/mL 2.6-24.9 L Plasma (test code = 31321-8) [facility] Dallas[facility] T4 and TSH panel - Serum or [id number] 00:00:00 Test Item Value Reference Range Interpretation Comments Thyrotropin [Units/volume] in 0.544 uIU/mL 0.450-4.500 Serum or Plasma by Detection limit <= 0.005 mIU/L (test code = 30208-5) Thyroxine (T4) free 0.97 NG/dL 0.82-1.77 [Mass/volume] in Serum or Plasma (test code = 3024-7) [facility] DallasTestosterone free and total panel [Mass/volume] - Serum or [id number] 00:00:00 Test Item Value Reference Range Interpretation Comments Testosterone [Mass/volume] in Serum 26 NG/dL 13-71 or Plasma (test code = 2986-8) Testosterone Free [Mass/volume] in 1.6 pg/mL 0.0-4.2 Serum or Plasma (test code = 2991-8) [facility] DallasHemoglobin A1c/Hemoglobin.total in [id number] 00:00:00 Test Item Value Reference Range Interpretation Comments Hemoglobin A1c/Hemoglobin.total in 5.3 % 4.8-5.6 Blood (test code = 4548-4) [facility] DallasDehydroepiandrosterone sulfate (DHEA- S) [Mass/volume] in Serum or [id number] 00:00:00 Test Item Value Reference Range Interpretation Comments Dehydroepiandrosterone sulfate 205.0 ug/dL 110.0-431.7 (DHEA-S) [Mass/volume] in Serum or Plasma (test code = 2191-5) [facility] DallasChoriogonadotropin.intact+Beta subunit [Units/volume] in Serum or [id number] 00:00:00 Test Item Value Reference Range Interpretation Comments Choriogonadotropin.intact+Beta subunit <1 [Units/volume] in Serum or Plasma (test code = 73146-2) [facility] DallasProlactin [Mass/volume] in Serum or [id number] 00:00:00 Test Item Value Reference Range Interpretation Comments Prolactin [Mass/volume] in Serum 14.7 NG/mL 4.8-23.3 or Plasma (test code = 2842-3) [facility]HIV 1 and 2 tests - Meaningful Use [id number] 00:00:00 Test Item Value Reference Range Interpretation Comments HIV 1+2 Ab+HIV1 p24 Ag non reactive non reactive [Presence] in Serum or Plasma by Immunoassay (test code = 73272-6) [facility] DallasInsulin [Units/volume] in Serum or [id number] 00:00:00 Test Item Value Reference Range Interpretation Comments Insulin [Units/volume] in Serum or 2.3 uIU/mL 2.6-24.9 L Plasma (test code = 52135-0) [facility] Programpregnancy test, [id number] 14:34:48 Test Item Value Reference Range Interpretation Comments HCG (test code = HCG) negative [facility] Programpregnancy test, [id number] 14:34:48 Test Item Value Reference Range Interpretation Comments HCG (test code = HCG) negative [facility] Programpregnancy test, [id number] 14:34:48 Test Item Value Reference Range Interpretation Comments HCG (test code = HCG) negative [facility] DallasUrinalysis macro (dipstick) panel - [id number] 14:34:43 Test Item Value Reference Range Interpretation Comments Leukocytes (test code = Leukocytes) - Nitrite (test code = Nitrite) - Urobilinogen (test code = - Urobilinogen) Protein (test code = Protein) - pH (test code = pH) 8.0 Blood (test code = Blood) - Specific [place] (test code = Specific 1.015 [place]) Ketone (test code = Ketone) - Bilirubin (test code = Bilirubin) - Glucose (test code = Glucose) - Appearance (test code = Appearance) clear Color (test code = Color) [facility] - [id number] 14:34:43 Test Item Value Reference Range Interpretation Comments Leukocytes (test code = Leukocytes) - Nitrite (test code = Nitrite) - Urobilinogen (test code = - Urobilinogen) Protein (test code = Protein) - pH (test code = pH) 8.0 Blood (test code = Blood) - Specific [place] (test code = Specific 1.015 [place]) Ketone (test code = Ketone) - Bilirubin (test code = Bilirubin) - Glucose (test code = Glucose) - Appearance (test code = Appearance) clear Color (test code = Color) [facility] (dipstick) panel - [id number] 14:34:43 Test Item Value Reference Range Interpretation Comments Leukocytes (test code = Leukocytes) - Nitrite (test code = Nitrite) - Urobilinogen (test code = - Urobilinogen) Protein (test code = Protein) - pH (test code = pH) 8.0 Blood (test code = Blood) - Specific [place] (test code = Specific 1.015 [place]) Ketone (test code = Ketone) - Bilirubin (test code = Bilirubin) - Glucose (test code = Glucose) - Appearance (test code = Appearance) clear Color (test code = Color) [facility] W Auto Differential panel - Blood [...] = 706-2) immature cells (test code = clam grader immature cells) Neutrophils [#/volume] in Blood 1.9 [...] Blood by Automated count (test code = 50432-9) Immature granulocytes 0.0 x10e3/uL 0.0-0.1 [#/volume] in Blood by Automated count (test code = 10353-0) Nucleated erythrocytes/100 clam grader leukocytes [Ratio] in Blood by Automated count (test code = 96986-3) Morphology [Interpretation] in clam grader Blood Narrative (test code = 05058-0) [facility] DallasComprehensive metabolic 2000 panel - Serum or [id number] 00:00:00 Test Item Value Reference Range Interpretation [...] 8.7-10.2 Serum or Plasma (test code = 17812-3) Protein [Mass/volume] in 7.4 g/dL 6.0-8.5 Serum or Plasma (test code = 2885-2) Albumin [Mass/volume] in 4.7 g/dL 3.9-5.0 Serum or Plasma (test code = 1751-7) Globulin [Mass/volume] in 2.7 g/dL 1.5-4.5 Serum by calculation (test code = 38265-2) Albumin/Globulin [Mass Ratio] 1.7 1.2-2.2 in Serum [...] Serum or Plasma (test code = 1742-6) [facility] DallasLipid 1996 panel - Serum or Plasma 2021-10-30 [...] or Plasma by calculation (test code = 45297-3) Cholesterol in LDL [Mass/volume] in 98 mg/dL 0-99 Serum or Plasma by calculation (test code = 68169-5) Laboratory comment [Text] in Report clam grader Narrative (test code = 53872-2) [facility] DallasHemoglobin A1c/Hemoglobin.total in [id number] 00:00:00 Test Item Value Reference Range Interpretation Comments Hemoglobin A1c/Hemoglobin.total in 5.3 % 4.8-5.6 Blood (test code = 4548-4) [facility]25-Hydroxyvitamin D3+25- Hydroxyvitamin D2 [Mass/volume] in Serum or [id number] 00:00:00 Test Item Value Reference Range Interpretation Comments 25-Hydroxyvitamin 35.4 NG/mL 30.0-100.0 D3+25-Hydroxyvitamin D2 [Mass/volume] in Serum or Plasma (test code = 27018-8) [facility] DallasThyrotropin [Units/volume] in Serum or Plasma by Detection limit <= 0.005 mIU/[id number] 00:00:00 Test Item Value Reference Range Interpretation Comments Thyrotropin [Units/volume] in 0.446 uIU/mL 0.450-4.500 L Serum or Plasma by Detection limit <= 0.005 mIU/L (test code = 37744-6) Thyroxine (T4) free 1.06 NG/dL 0.82-1.77 [Mass/volume] in Serum or Plasma (test code = 3024-7) [facility] Dallascardiovascular assessment panel, [id number] 00:00:00 Test Item Value Reference Range Interpretation Comments Interpretation and review of laboratory note results (test code = 52692-2) Report (test code = 80390-5) . [facility] DallasCB W Auto Differential panel - Blood 2021-10-30 [...] = 706-2) immature cells (test code = clam grader immature cells) Neutrophils [#/volume] in Blood 1.9 [...] Blood by Automated count (test code = 63445-8) Immature granulocytes 0.0 x10e3/uL 0.0-0.1 [#/volume] in Blood by Automated count (test code = 66904-1) Nucleated erythrocytes/100 clam grader leukocytes [Ratio] in Blood by Automated count (test code = 91731-4) Morphology [Interpretation] in clam grader Blood Narrative (test code = 32966-3) [facility] ProgramCom[facility] 2000 panel - Serum or [id number] 00:00:00 Test Item Value Reference Range Interpretation [...] 8.7-10.2 Serum or Plasma (test code = 56858-0) Protein [Mass/volume] in 7.4 g/dL 6.0-8.5 Serum or Plasma (test code = 2885-2) Albumin [Mass/volume] in 4.7 g/dL 3.9-5.0 Serum or Plasma (test code = 1751-7) Globulin [Mass/volume] in 2.7 g/dL 1.5-4.5 Serum by calculation (test code = 79837-2) Albumin/Globulin [Mass Ratio] 1.7 1.2-2.2 in Serum [...] Serum or Plasma (test code = 1742-6) [facility] - Serum or Plasma 2021-10-30 [...] or Plasma by calculation (test code = 79914-7) Cholesterol in LDL [Mass/volume] in 98 mg/dL 0-99 Serum or Plasma by calculation (test code = 53255-5) Laboratory comment [Text] in Report clam grader Narrative (test code = 77354-5) [facility] DallasHemoglobin A1c/Hemoglobin.total in [id number] 00:00:00 Test Item Value Reference Range Interpretation Comments Hemoglobin A1c/Hemoglobin.total in 5.3 % 4.8-5.6 Blood (test code = 4548-4) [facility]25-Hydroxyvitamin D3+25- Hydroxyvitamin D2 [Mass/volume] in Serum or [id number] 00:00:00 Test Item Value Reference Range Interpretation Comments 25-Hydroxyvitamin 35.4 NG/mL 30.0-100.0 D3+25-Hydroxyvitamin D2 [Mass/volume] in Serum or Plasma (test code = 82041-7) [facility] DallasThyrotropin [Units/volume] in Serum or Plasma by Detection limit <= 0.005 mIU/[id number] 00:00:00 Test Item Value Reference Range Interpretation Comments Thyrotropin [Units/volume] in 0.446 uIU/mL 0.450-4.500 L Serum or Plasma by Detection limit <= 0.005 mIU/L (test code = 07651-6) Thyroxine (T4) free 1.06 NG/dL 0.82-1.77 [Mass/volume] in Serum or Plasma (test code = 3024-7) [facility] D[facility]ascardiovascular assessment panel, [id number] 00:00:00 Test Item Value Reference Range Interpretation Comments Interpretation and review of laboratory note results (test code = 31583-6) Report (test code = 37247-1) . [facility]CB W Auto Differential panel - Blood 2021-10-30 [...] = 706-2) immature cells (test code = clam grader immature cells) Neutrophils [#/volume] in Blood 1.9 [...] Blood by Automated count (test code = 75479-4) Immature granulocytes 0.0 x10e3/uL 0.0-0.1 [#/volume] in Blood by Automated count (test code = 25117-9) Nucleated erythrocytes/100 clam grader leukocytes [Ratio] in Blood by Automated count (test code = 62266-0) Morphology [Interpretation] in clam grader Blood Narrative (test code = 88145-1) [facility] DallasComprehensive metabolic 2000 panel - Serum or [id number] 00:00:00 Test Item Value Reference Range Interpretation [...] 8.7-10.2 Serum or Plasma (test code = 61828-6) Protein [Mass/volume] in 7.4 g/dL 6.0-8.5 Serum or Plasma (test code = 2885-2) Albumin [Mass/volume] in 4.7 g/dL 3.9-5.0 Serum or Plasma (test code = 1751-7) Globulin [Mass/volume] in 2.7 g/dL 1.5-4.5 Serum by calculation (test code = 15895-7) Albumin/Globulin [Mass Ratio] 1.7 1.2-2.2 in Serum [...] Serum or Plasma (test code = 1742-6) [facility] DallasLipid 1996 panel - Serum or Plasma 2021-10-30 [...] or Plasma by calculation (test code = 23092-3) Cholesterol in LDL [Mass/volume] in 98 mg/dL 0-99 Serum or Plasma by calculation (test code = 06123-3) Laboratory comment [Text] in Report clam grader Narrative (test code = 88975-6) [facility] DallasHemoglobin A1c/Hemoglobin.total in [id number] 00:00:00 Test Item Value Reference Range Interpretation Comments Hemoglobin A1c/Hemoglobin.total in 5.3 % 4.8-5.6 Blood (test code = 4548-4) [facility]25-Hydroxyvitamin D3+25- Hydroxyvitamin D2 [Mass/volume] in Serum or [id number] 00:00:00 Test Item Value Reference Range Interpretation Comments 25-Hydroxyvitamin 35.4 NG/mL 30.0-100.0 D3+25-Hydroxyvitamin D2 [Mass/volume] in Serum or Plasma (test code = 40284-6) [facility] DallasThyrotropin [Units/volume] in Serum or Plasma by Detection limit <= 0.005 mIU/[id number] 00:00:00 Test Item Value Reference Range Interpretation Comments Thyrotropin [Units/volume] in 0.446 uIU/mL 0.450-4.500 L Serum or Plasma by Detection limit <= 0.005 mIU/L (test code = 89421-1) Thyroxine (T4) free 1.06 NG/dL 0.82-1.77 [Mass/volume] in Serum or Plasma (test code = 3024-7) [facility] D[facility]ardiovascular assessment panel, [id number] 00:00:00 Test Item Value Reference Range Interpretation Comments Interpretation and review of laboratory note results (test code = 65935-5) Report (test code = 41598-3) . [facility]
[2022-11-05 23:56] LABS: Specific Gravity 1.021 (1.005-1.030)
[2022-11-05 23:58] LABS: Urine Bacteria <20 /HPF (<20); Urine WBC Clump Rare /HPF (None Seen)
[2022-11-06 00:03] LABS: Barbiturates NEGATIVE (NEGATIVE); Benzodiazepines NEGATIVE (NEGATIVE); Cocaine NEGATIVE (NEGATIVE); METHAMPHETAM NEGATIVE (NEGATIVE); Methadone NEGATIVE (NEGATIVE); Opiates NEGATIVE (NEGATIVE); Phencyclidine NEGATIVE (NEGATIVE); THC Cannibis NEGATIVE (NEGATIVE)
--- NOTE | 2022-11-06 01:27 | EDPHYS ---
Physician Documentation [facility] Name: Mily Abel Age: 22 yrs Sex: Female : 2000 Arrival Date: 11/05/2022 Time: 22:41 Bed 17 Private MD: ED Physician Humza Larios HPI: 11/05 23:20 This 22 yrs old Black Female presents to ER via Ambulatory with complaints of Irregular cp Pulse, Near Syncope. 23:30 The patient presents with a history of heart racing. Context: The symptoms occur at cp rest. 23:30 Onset: The symptoms/episode began/occurred today. Duration: The patient or guardian cp reports a single episode. Patient accompanied by grandmother to ED who reports patient recent discharge from [facility]. Recently started on Risperidone. Grandmother concerned about medication effects. Patient seemed "spaced out" today and c/o heart racing. Appeared to almost lose consciousness. Historical: - Allergies: 23:10 No Known Allergies; cm10 - Home Meds: 23:10 risperidone 2 mg oral tablet 2 times per day [Active]; cm10 - Immunization history:: Adult Immunizations. - Social history:: Smoking status: Patient denies any tobacco usage or history of. ROS: 23:25 Constitutional: Negative for body aches, chills, fever, poor PO intake, cp 23:25 Eyes: Negative for injury, pain, redness, and discharge, cp 23:25 ENT: Negative for drainage from ear(s), ear pain, sore throat, difficulty swallowing, difficulty handling secretions, 23:25 Cardiovascular: Positive for palpitations, Negative for chest pain, 23:25 Respiratory: Negative for cough, shortness of breath, sputum production, 23:25 Abdomen/GI: Negative for abdominal pain, nausea, vomiting, and diarrhea, 23:25 Neuro: Positive for near syncope, Negative for altered mental status, headache, 23:25 All other systems are negative, Exam: 23:25 ECG was reviewed by the Attending Physician. cp 23:30 Constitutional: The patient appears in no acute distress, alert, awake, comfortable, cp non-diaphoretic, non-toxic, well developed, well nourished, 23:30 Head/Face: Normocephalic, atraumatic. cp 23:30 Eyes: Pupils: equal, round, and reactive to light and accomodation, Conjunctiva: normal, no exudate, no injection, Sclera: no appreciated abnormality, Lids and lashes: appear normal, bilaterally, 23:30 ENT: External ear(s): are unremarkable, Nose: is normal, Mouth: Lips: moist, Oral mucosa: pink and intact, moist, Posterior pharynx: is normal, airway is patent, no erythema, no exudate, 23:30 Neck: ROM/movement: is normal, is supple, without pain, no range of motions limitations, 23:30 Chest/axilla: Inspection: normal, 23:30 Cardiovascular: Rate: normal, Rhythm: regular, Edema: is not appreciated, JVD: is not appreciated, 23:30 Respiratory: the patient does not display signs of respiratory distress, Respirations: normal, no use of accessory muscles, no retractions, labored breathing, is not present, Breath sounds: are clear throughout, no decreased breath sounds, no stridor, no wheezing, 23:30 Abdomen/GI: Inspection: abdomen appears normal, 23:30 Neuro: Orientation: no acute changes, Mentation: able to follow commands, slow to respond, Motor: moves all fours, strength is normal, Vital Signs: 23:04 BP 121 / 84; Pulse 84; Resp 18 S; Temp 97.2; Pulse Ox 97% on R/A; Weight 77.11 kg; Pain cm10 6/10; 11/06 00:00 BP 118 / 84; Pulse 85; Resp 17 S; Pulse Ox 98% on R/A; ha1 01:00 BP 120 / 81; Pulse 79; Resp 17 S; Pulse Ox 98% on R/A; ha1 11/05 23:04 Pain Scale: Adult cm10 MDM: 11/05 23:23 Patient medically screened. cp 23:30 Differential diagnosis: arrythmia, dehydration, medication reaction. cp 11/06 01:25 Data reviewed: vital signs, nurses notes, EKG. :25 Test considered but Not performed: Labs: refused by patient. Historians other than the cp Patient: Family Member: grandmother. Counseling: I had a detailed discussion with the patient and/or guardian regarding the historical points, exam findings, and any diagnostic results supporting the discharge/admit diagnosis, the need for outpatient follow up, a family practitioner, to return to the emergency department if symptoms worsen or persist or if there are any questions or concerns that arise at home. 11/05 23:15 Order name: Urine Microscopic Only; Complete Time: : cp 11/05 23:15 Order name: PREGU; Complete Time: : cp 11/05 23:16 Order name: UDS; Complete Time: cp 11/06 00:04 Order name: Urine Culture EDMS 11/05 23:15 Order name: XRAY Chest (1 view) 11/05 23:15 Order name: EKG; Complete Time: 23: cp 11/05 23:15 Order name: Cardiac monitoring; Complete Time: : cp 11/05 23:15 Order name: EKG - Nurse/Tech; Complete Time: : cp 11/05 23:15 Order name: O2 Per Protocol; Complete Time: cp 11/05 23:15 Order name: O2 Sat Monitoring; Complete Time: cp EC/22 23:25 Rate is 84 beats/min. Rhythm is regular. [place] interval is normal. QRS interval is normal. cp QT interval is normal. T waves are Inverted in leads III, aVR. Interpreted by me. Reviewed by me. Administered Medications: No medications were administered Disposition: 11/06 02:25 Co-signature as Attending Physician, Humza Larios DO I was immediately available on-site ms3 in the Emergency Department for consultation in the care of the patient. Disposition Summary: 11/06/22 01:26 Discharge Ordered Notes: Location: Home cp Problem: new cp Symptoms: have improved cp Condition: Stable cp Diagnosis - Syncope Near cp - Palpitations cp Followup: cp - With: Private Physician - When: 2 - 3 days - Reason: Recheck today's complaints Discharge Instructions: - Discharge Summary Sheet cp - Near-Syncope cp - Palpitations cp Forms: - Medication Reconciliation Form cp - Thank You Letter cp - Antibiotic Education cp - Prescription Opioid Use cp - Patient Portal Instructions cp - Leadership Thank You Letter cp Signatures: Dispatcher [employer] EDSC Ulisses Miller PA PA cp Sims, Marcus, DO DO ms3 Elly Mir RN RN cm10 Corrections: (The following items were deleted from the chart) 01:11/05 23:15 IV Saline Lock ordered. cp ha1 11/06 01:11/05 23:15 Labs collected and sent ordered. cp ha1
--- NOTE | 2022-11-06 01:27 | ER ---
Nurse's Notes [facility] Name: Mily Abel Age: 22 yrs Sex: Female : 2000 Arrival Date: 11/05/2022 Time: 22:41 Bed 17 Private MD: Diagnosis: Syncope Near;Palpitations Presentation: 11/05 23:04 Chief complaint: Parent and/or Guardian states: Pt was released from [facility] on cm10 after being there for 8 days and was started on Risperidone. Pt's mom states that the medication is making her "spaced out" and today she started complaining of palpitations. Chief complaint: Patient states: chest pain to the center of her chest and is having some light headedness. Coronavirus screen: Vaccine status: Patient reports receiving the 2nd dose of the covid vaccine. Ebola Screen: Patient denies travel to an Ebola-affected area in the 21 days before illness onset. No symptoms or risks identified at this time. Initial Sepsis Screen: Does the patient meet any 2 criteria? No. Patient's initial sepsis screen is negative. Does the patient have a suspected source of infection? No. Patient's initial sepsis screen is negative. Risk Assessment: Do you want to hurt yourself or someone else? Patient reports no desire to harm self or others. Onset of symptoms was November 05, 2022. 23:04 Method Of Arrival: Ambulatory cm10 23:04 Acuity: GUSTAVO 3 cm10 Triage Assessment: 23:10 General: Appears in no apparent distress. comfortable, Behavior is calm, cooperative, cm10 flat. Historical: - Allergies: 23:10 No Known Allergies; cm10 - Home Meds: 23:10 risperidone 2 mg oral tablet 2 times per day [Active]; cm10 - Immunization history:: Adult Immunizations. - Social history:: Smoking status: Patient denies any tobacco usage or history of. Screenin/23 00:00 [facility] ED Fall Risk Assessment (Adult) History of falling in the last 3 months, ha1 including since admission No falls in past 3 months (0 pts) Confusion or Disorientation No (0 pts) Intoxicated or Sedated No (0 pts) Impaired Gait No (0 pts) Mobility Assist Device Used No (0 pt) Altered Elimination No (0 pt) Score/Fall Risk Level 0 - 2 = Low Risk Oriented to surroundings, Maintained a safe environment, Hourly rounding (assess needs \\T\\ fall precautionary measures) done. 01:34 Abuse screen: Denies threats or abuse. Denies injuries from another. Nutritional ha1 screening: No deficits noted. Tuberculosis screening: No symptoms or risk factors identified. Assessment: 00:00 General: Appears comfortable, Behavior is calm, cooperative. Pain: Denies pain. Neuro: ha1 Level of Consciousness is awake, alert, obeys commands, Oriented to person, place, time, situation, Reports weakness GENERALIZED. Cardiovascular: Denies chest pain, Heart tones S1 S2 present Patient's skin is warm and dry. Respiratory: Airway is patent Respiratory effort is even, unlabored, Respiratory pattern is regular, symmetrical. GI: No signs and/or symptoms were reported involving the gastrointestinal system. : No signs and/or symptoms were reported regarding the genitourinary system. Derm: Skin is moist, Skin is pink, warm \\T\\ dry. Musculoskeletal: Circulation, motion, and sensation intact. Range of motion: intact in all extremities. 00:35 Cardiovascular: Rhythm is sinus rhythm. ha1 01:00 Reassessment: PT. REFUSED IV OR STRAIGHT STICK TO DRAW BLOOD. CARE PROVIDER EXPLAINED ha1 THE IMPORTANCE OF COLLECTING BLOOD. 01:40 Reassessment: Patient and/or family updated on plan of care and expected duration. Pain ha1 level reassessed. Patient is alert, oriented x 3, equal unlabored respirations, skin warm/dry/pink. 01:45 Pain: Denies pain. ha1 Vital Signs: 11/05 23:04 BP 121 / 84; Pulse 84; Resp 18 S; Temp 97.2; Pulse Ox 97% on R/A; Weight 77.11 kg; Pain cm10 6/10; 11/06 00:00 BP 118 / 84; Pulse 85; Resp 17 S; Pulse Ox 98% on R/A; ha1 01:00 BP 120 / 81; Pulse 79; Resp 17 S; Pulse Ox 98% on R/A; ha1 11/05 23:04 Pain Scale: Adult cm10 ED Course: 11/05 22:44 Patient arrived in ED. jj6 22:48 Ulisses Miller PA is PHCP. cp 22:48 Humza Larios DO is Attending Physician. cp 23:10 Triage completed. cm10 23:11 Arm band placed on Patient placed in an exam room, on a stretcher. cm10 23:44 UDS Sent. cm10 23:44 PREGU Sent. cm10 23:44 Urine Microscopic Only Sent. cm10 11/06 00:00 Patient has correct armband on for positive identification. Placed in gown. Bed in low ha1 position. Call light in reach. Side rails up X 1. Adult w/ patient. 00:00 Client placed on continuous cardiac and pulse oximetry monitoring. NIBP monitoring ha1 applied. 00:25 XRAY Chest (1 view) In Process Unspecified. EDMS 00:51 Marycarmen Devine, RN is Primary Nurse. ha1 01:41 No provider procedures requiring assistance completed. Patient did not have IV access ha1 during this emergency room visit. Patient maintains SpO2 saturation greater than 95% on room air. 01:43 Provided Education on: THE IMPORTANCE TO COLLECT BLOOD.. ha1 Administered Medications: No medications were administered Medication: 01:41 VIS not applicable for this client. ha1 Outcome: 01:26 Discharge ordered by . ferny 01:41 Discharged to home ambulatory, with family, ha1 01:41 Condition: stable 01:41 Discharge instructions given to patient, family, Instructed on discharge instructions, follow up and referral plans. Demonstrated understanding of instructions, follow-up care, 01:45 Patient left the ED. ha1 Signatures: Dispatcher [employer] EDRI Ulisses Miller PA PA cp Jeffries, Jennifer [email or web address] Marycarmen Devine, RN RN ha1 Elly Mir RN RN 10
[2022-11-06 01:52] VITALS: TEMP 97.2
[2022-11-06 01:54] VITALS: O2SAT 98
[2022-11-06 01:55] VITALS: BP 120/81
--- NOTE | 2022-11-06 21:48 | RAD REPORT ---
EXAM DESCRIPTION: XR Chest, 1 View CLINICAL HISTORY: The patient is 22 years old and is Female; PALPITATIONS TECHNIQUE: Frontal view of the chest. COMPARISON: No relevant prior studies available. FINDINGS: Lungs: Unremarkable. No consolidation. Pleural space: Unremarkable. No pneumothorax. Heart: Unremarkable. Mediastinum: Unremarkable. Bones/joints: No acute findings. IMPRESSION: No acute findings in the chest. Electronically signed by: Naseem Springer MD 11/06/2022 12:46 AM CDT Due to temporary technical issues with the PACS/Fluency reporting system, reports are being signed by the in house radiologists without review as a courtesy to insure prompt reporting. The interpreting radiologist is fully responsible for the content of the report.
--- NOTE | 2022-11-08 12:36 | EKG ---
Test Date: 2022-11-05 Test Time: 23:19:48 Floor Coverings Installer: ROMI MEASUREMENT RESULTS: Intervals: Rate: 84 IA: 132 QRSD: 74 QT: 352 QTc: 415 [place]: P: 62 IA: 132 QRS: 57 T: 24 INTERPRETIVE STATEMENTS: Normal sinus rhythm Nonspecific T wave abnormality Abnormal ECG No previous ECG available for comparison Electronically Signed On 11-08-22 12:31:45 CDT by Juan Nguyen
== END 2022-11-06 01:45 | disposition home or self-care (01) ==
LOC: ER 22:41
DX: R55 Syncope and collapse (principal); R00.2 Palpitations
CPT/HCPCS: 71045; 80307; 81015; 81025; 87086; 87088; 93005; 99284